=== PATIENT | female | born 2005 | race Two or more races ===

== ENCOUNTER 2025-03-13 10:41 | Outpatient (AMB) | payer MEDICAID, SELFPAY ==
--- NOTE | 2025-03-13 10:41 | AMB.GYNCLNOT ---
Vital Signs 03/13/25 10:54 Height 1.63 m Height Method Stated Weight 80.739 kg Weight Measurement Method Standing Scale BMI 30.5 BP 123/74 Blood Pressure Source Automatic Cuff Blood Pressure Location Right Upper Arm Position Sitting Respiration 16 Pulse 79 Pulse Source Monitor Temp 97.7 F Temp Source Oral Pulse Oximetry (%) 98 Oxygen Delivery Method Room Air Allergies/Home Meds Allergies & Medications Allergies No Known Allergies Allergy (Verified 03/13/25 10:56) Medication Reconciliation vits no.124-ferrous fum 27 mg iron-folic acid 800 mcg tablet ( Vitamin) 1 tab PO DAILY 06/30/24 [History Confirmed 03/13/25] cholecalciferol (vitamin D3) 10 mcg (400 unit) capsule 10 mcg PO QDAY 30 days #30 caps 03/13/25 [Rx] vits no.126-ferrous fum 28 mg iron-folic acid 800 mcg tablet (Classic ) 0.126 - 28 tab PO DAILY 30 days #60 tabs 03/13/25 [Rx] Intake Visit Data Collection New Patient or Established: Established Patient (seen at [facility] within 3 years) Reason for Visit:: AMENORRHEA Seen by Clinical Staff ONLY (RN/MA): No Railroad Car Loader Required: No Do You Feel Safe at Home: Yes Authorities Contacted: N/A PCP or OBGYN visit in last 3 months: No Hx Now: Yes Are you currently on any form of Control: No Last menstrual period: 02/01/25 Pain Present Currently: No Pain Scale Used: Higgins-Madsen/Numerical Pain scale:: 0 Smoking Status Smoking Status: Never smoker Director Of Clinical Applications history Director Of Clinical Applications History Menstrual regularity: regular Flow: normal Monthly: Yes How many days does period last: 6 Age at menarche: 11 Menopausal: No Currently sexually active: Yes Questionnaires Covid-19 Vaccine Questionnaire Has patient been vacinated for Covid-19 Have you been vacinated for Covid-19: No PHQ-9 PHQ-2 Over the last 2 weeks, how often have you been bothered by any of the following problems? 1. Little interest or pleasure in doing things: not at all 2. Feeling down, depressed, or hopeless: not at all Total score: 0 PHQ-9 3. Trouble falling or staying asleep, or sleeping too much: Not at all 4. Feeling tired or having little energy: Not at all 5. Poor appetite or overeating: Not at all 6. Feeling bad about yourself - or that you are a failure or have let yourself or your family down: Not at all 7. Trouble concentrating on things, such as reading the newspaper or watching television: Not at all 8. Moving or speaking so slowly that other people could have noticed? - Or the opposite - being so fidgety or restless that you have been moving around a lot more than usual: not at all 9. Thoughts that you would be better off or of hurting yourself in some way: Not at all Total score: 0 Source: Developed by Drs. Simeon Martinez, Indu Javed, Juanito Eaton and colleagues, with an educational emil from [employer]. 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 at Home: Yes Past Medical History Past Medical History Have you ever been diagnosed with any of the following: Neurological Problems Seizures: No Cardiology Problems Congestive Heart Failure: No Respiratory Problems Chronic Obstructive Pulmonary Disease (COPD): No Stomache/Intestinal Problems Hepatitis: No Genital/Urinary Problems Renal Disease: No Reproductive Problems Endometriosis: No Pelvic Inflammatory Disease: No Previous Pregnancies: Yes Uterine Prolapse: No Endocrine Problems Diabetes Mellitus Type 1: No Diabetes Mellitus Type 2: No Blood Problems Anemia: Yes (with this .) Other Problems Hospitalization: No Down Syndrome: No Developmental Delay: No Shingles: No Falls: No Blood Transfusions: No Blood Transfusion Reaction: No Anesthesia Reactions: No Organ Transplant: No Chemotherapy: No Radiation Therapy: No Hyperbaric Therapy: No MRSA: No VRSA: No Vancomycin-Resistant Enterococci: No Human Immunodeficiency Virus (HIV): No Chicken Pox: No Measles: No Mumps: No Rubella ([place] Measles): No Pertussis: No Clostridium Difficile: No Cancer: No History of Present Illness HPI Narrative 19 yo for amenorrhea/confirm preg test. lmp 02/01/25. EDC 11/10/25. IUP 5w6. sure date, no SAB complaints,no 1st trimester discomfort. unplanned . not using contraception. previous c/s last . c/s for arrest at 3 cm. SROM and no progress. Patient wants to see Dr Elder. denies existing pMH,no social habit. fob involved Review of Systems Review of Systems Systems Reviewed: All systems reviewed, normal except as documented Exam Narrative Physical exam: + test General Limitations: no limitations General Appearance: alert, in no apparent distress, comfortable, cooperative, healthy appearing, well developed and well groomed Head Head exam: atraumatic, normocephalic and normal inspection Resp Respiratory exam: Present normal lung sounds bilaterally Card Cardiovascular exam: Present regular rate, normal rhythm and normal heart sounds Abdominal Abdominal exam: Present soft and normal bowel sounds Psych Psychiatric exam: Present normal affect and normal mood Results Objective Laboratory: + preg test Assessment & Plan Diagnosis / Problem List (1) Amenorrhea: Status: Acute (2) Encounter for test, result positive: Status: Acute Plan verification, start pNV, review s/s of sab. OB panel ordered today. discuss diet and weight, increase protien. increase fluid, comfort measure for nausea. rtc 4 week OBI Additional Plan Follow Up: 4 Weeks (obc) Office Procedures OB Clinic LOC & Office Proc's Nursing/Assessment Patient Status: Established Patient OB Clinic Nursing Assessment: Medication Reconciliation, Update PMH in EMR and Vital Signs OB Clinic Coordination of Care: Complex Care and Chronic Disease 1-5, Consent,records obtained, informed consent, Education Simp Pt/Fam, Lab and Imaging orders, Results/Orders obtained and Staff clarify orders Miscellaneous Interventions: Blood/Urine Collection Established Patient Charge Established Patient Point Assignment: 135 Established Patient Point Charge: EP Level 4 (120-155) In Clinic Bedside tests Bedside HCG: Yes Urine HCG Ambulatory Location Ambulatory Dept Location: OB Clinic Urine HCG HCG: Yes Results Urine HCG Urine HCG Positive Last Edit by Naomi Abernathy MA on 03/13/25 10:59
[2025-03-13 10:54] VITALS: BP 123/74; PULSE 79; RESP 16; TEMP 36.5; O2SAT 98; BMI 30.5
== END 2025-03-13 11:19 | disposition home or self-care (01) ==
PROVIDERS: Supervising Provider Obstetrics & Gynecology; Visit Provider Advanced Practice Midwife
DX: Z32.01 Encounter for pregnancy test, result positive (principal); N91.2 Amenorrhea, unspecified
CPT/HCPCS: 81025; 99214; G0463

== ENCOUNTER 2025-03-21 19:49 | Emergency (ER) | payer MEDICAID, SELFPAY ==
[2025-03-21 19:50] VITALS: BMI 30.5
--- NOTE | 2025-03-21 20:56 | PD.EDVAGBL ---
ED OB Contraction Preg RMI/HPI General Chief complaint: Vaginal Bleeding Stated complaint: VAGINAL BLEEDING, ABD CRAMPING Time Seen by Provider: 03/21/25 20:26 Arrival date/time: 03/21/25 19:49 RME / HPI RME / HPI Narrative: 19-year-old female patient 3 para 3, about 7 weeks , came in for evaluation regarding vaginal spotting. Onset of symptoms early today as vaginal spotting, only happened when she is wiping. Associated with on and off abdominal cramping. Patient denies any other complaints. No medications taken prior to arrival. Was seen by photo tube assembler and was told that she is . No ultrasound was done at the time. Related Data Home Medications ?Medication ?Instructions ?Recorded ?Confirmed vits no.124-ferrous fum 1 tab PO DAILY 06/30/24 03/13/25 27 mg iron-folic acid 800 mcg tablet ( Vitamin) Previous Rx's ?Medication ?Instructions ?Recorded cholecalciferol (vitamin D3) 10 10 mcg PO QDAY 30 days #30 caps 03/13/25 mcg (400 unit) capsule vits no.126-ferrous fum 0.126 - 28 tab PO DAILY 30 days 03/13/25 28 mg iron-folic acid 800 mcg #60 tabs tablet (Classic ) Allergies Allergy/AdvReac Type Severity Reaction Status Date / Time No Known Allergies Allergy Verified 03/21/25 19:52 Review of Systems Review of Systems Narrative Review of Systems: Review of system reviewed and within normal limits except mentioned in HPI ED Exam Narrative Physical exam: VITAL SIGNS: Reviewed. GENERAL APPEARANCE: Alert and interactive, follows commands, no acute distress, HEAD AND FACE: Non-traumatic. ENT: PERRL, pink conjunctivitis, eyelid no trauma, Mucous membrane moist. NECK: Supple, nontender, no nuchal rigidity. CHEST: No tenderness, no crepitus, no paradoxical movement, no retractions. LUNGS: Clear, well ventilated, symmetric, no rales, no wheezing, no ronchi, no stridor, good breath sounds bilaterally. HEART: Regular rate, regular rhythm, no murmur, no gallops. ABDOMEN: Soft, positive bowel sounds, nondistended, no guarding, nontender, no rebound, no masses, RECTAL: Deferred. GENITAL: Deferred. NEUROLOGICAL: Gross motor function intact sensory function intact, Appropriate for age. MUSCULOSKELETAL: low back nontender, full range of motion. EXTREMITIES: Nontender, full range of motion. SKIN: Color pink, dry, no rash, no lacerations, no abrasions, no contusions. LYMPHATICS: Deferred. Course Quality Measures none Orders Category Date Time Status US OB <= 14 weeks fetus Stat Exams 03/21/25 20:59 Completed ABO/RH Type Stat Lab 03/21/25 21:10 Completed Basic Metabolic Panel Stat Lab 03/21/25 21:10 Completed Beta HCG,Quantitative Stat Lab 03/21/25 21:10 Completed CBC Stat Lab 03/21/25 21:10 Completed Urinalysis Stat Lab 03/21/25 21:11 Completed Vital Signs Vital signs: Vital Signs Temperature 98.3 F 03/21/25 21:57 Pulse Rate 81 03/21/25 21:57 Respiratory Rate 18 03/21/25 21:57 Blood Pressure 118/71 03/21/25 21:57 Pulse Oximetry (%) 99 03/21/25 21:57 Oxygen Delivery Method Room Air 03/21/25 21:57 Vaginal Bleeding MDM Narrative MDM Narrative: 19-year-old female patient 3 para 3, about 7 weeks , came in for evaluation regarding vaginal spotting. Onset of symptoms early today as vaginal spotting, only happened when she is wiping. Associated with on and off abdominal cramping. Patient denies any other complaints. No medications taken prior to arrival. Was seen by photo tube assembler and was told that she is . No ultrasound was done at the time. Ultrasound of showed single live intrauterine gestation about 6 weeks and 2 days old with a heartbeat of 119 Laboratory workup including ultrasound came back unremarkable. Results discussed with the patient. Patient data External records reviewed:: None Clinical information provided by:: patient Social determinants that could affect healthcare access:: none Patient has the following chronic illnesses:: None How is presenting disease/condition affected by chronic disease/condition?: no chronic disease Evaluation data The following diagnostics were reviewed and interpreted by me:: lab results and radiology exam(s) Lab and/or radiology exams considered but not ordered:: None Interpretation Summary: See results MDM Medications / Prescriptions Medications or Prescriptions considered but not ordered:: None Medication administrations:: None Consultations Consultation(s) initiated? (list below): No Diagnosis Vaginal Bleeding Differential Diagnosis: threatened , incomplete and vaginal bleeding Most likely diagnosis given after review of the tests above:: Vaginal spotting, Admission Indicated Admission indicated?: not indicated Admission Request Was there a request for admission?: No Disposition Plan Disposition Plan: Discharge Discharge Attestation Discharge Attestation: The patient was given an opportunity to ask questions and understood the discharge instructions. Discharge instructions specifically effects, indications for sooner follow up or return to the emergency department, and the expected course of current diagnosis. Patient condition: Stable Discharge Plan Plan Patient Disposition: HOME (Self Care) Discharge Disposition comment: Stable Prescriptions/Referrals Prescriptions/Med Rec: No Action Classic 28 mg iron- 800 mcg tablet 0.126 - 28 tab PO DAILY 30 Days Qty: 60 2RF cholecalciferol (vitamin D3) 10 mcg (400 unit) capsule 10 mcg PO QDAY 30 Days Qty: 30 0RF Vitamin 27 mg iron- 800 mcg Tablet 1 tab PO DAILY Referrals: Eddi Daniel MD [Primary Care Provider] - In 1 week Problem List Clinical Impression: Vaginal spotting, Patient/Caregiver Discharge Instructions Discharge Activity: activity as tolerated Education Materials: First Trimester Additional Instructions: Thank you for the opportunity for serving you today. You are stable for discharged . You are advised to: Follow-up with your ROUTE RELIEF DRIVER next week Return to ED for worsening of symptoms Increase oral fluids No sex or pelvic rest for 1 week or until cleared by ROUTE RELIEF DRIVER Print Language: Singaporean Stand Alone Forms: Kayla Award Info., Patient Portal Info Letter YG/CELESTINO Supervising Physician YG/CELESTINO Supervising Physician: MD Isai
--- NOTE | 2025-03-21 20:59 | XR_ITS ---
Examination: Complete OB ultrasound, less than 14 weeks, transabdominal Date and time of exam: March 21, 2025, 0 hours INDICATIONS: Onset vaginal bleeding beginning this morning Technique: Obstetrical ultrasound images less than 14 weeks performed via transabdominal imaging Findings: A normal shaped single intrauterine gestation is present in the uterus. pole 0.5 cm corresponds to 6 weeks 2 days gestational age Cardiac motion 119 bpm Ultrasonographic survey of visible and placental structures unremarkable. Amniotic fluid volume appears appropriate for this estimated gestational age. Right ovary 3.4 cm arterial flow Left ovary 3.3 cm arterial flow IMPRESSION: Viable intrauterine gestation 6 weeks 2 days.
[2025-03-21 21:17] LABS: Collection Type, Urine Clean Catch
[2025-03-21 21:22] LABS: Basophils % (Auto) 0 % (0-2.5); Eosinophils # (Auto) 0.2 Thou/mm3 (0.0-0.5); Eosinophils % (Auto) 2 % (0-10); Hematocrit 35.7 % (36.0-46.0); Hemoglobin 12.6 g/dL (12.0-16.0); Immature Granulocytes % (Auto) 0 % (0-0); Immature Granulocytes Auto 0.03 Thou/mm3 (0.00-0.00); Lymphocytes # (Auto) 2.4 Thou/mm3 (1.0-4.8); Lymphocytes % (Auto) 24 % (10-50); Mean Corpuscular HGB Conc 35.3 g/dl (31.0-37.0); Mean Corpuscular Hemoglobin 29.4 pg (25.0-35.0); Mean Corpuscular Volume 83 fL (80-100); Monocytes # (Auto) 0.7 Thou/mm3 (0.0-0.8); Monocytes % (Auto) 6 % (0-12); Neutrophils # (Auto) 6.9 Thou/mm3 (1.8-7.7); Neutrophils % (Auto) 68 % (37-80); Nucleated Red Blood Cell % 0 /100 WBC (0); Platelet Count 279 Thou/mm3 (140-440); RDW Standard Deviation 40.3 fL (36.4-46.3); Red Blood Count 4.29 Miln/mm3 (4.00-5.20); White Blood Count 10.2 Thou/mm3 (4.5-11.0)
[2025-03-21 21:27] LABS: Bilirubin,Urine Negative (Negative); Blood,Urine Trace (Negative); Clarity,Urine Clear (Clear/Hazy); Color,Urine Colorless (Lt Yel-Yel); Glucose, Urine Negative (Negative); Ketones,Urine Negative (Negative); Leukocyte Esterase,Urine Negative (Negative); Nitrite,Urine Negative (Negative); PH,Urine 5.5 (5.0-7.0); Protein,Urine Negative (Neg - Trace); Specific Gravity,Urine 1.008 (1.001-1.035); Urobilinogen,Urine Negative mg/dL (0.0-1.0)
[2025-03-21 21:42] LABS: Mucus,Urine 2+ /lpf; RBC,Urine 3 /hpf (0-3); Squamous Epithelial Cell,Urine 1 /hpf (0-5); WBC,Urine 1 /hpf (0-5)
[2025-03-21 21:46] LABS: Anion Gap 9 (7-16); BUN/Creatinine Ratio 13 Ratio (12-20); Blood Urea Nitrogen 10 mg/dL (9-23); Carbon Dioxide 25.6 mMol/L (20.0-31.0); Chloride 103 mMol/L (98-107); Creatinine (Component) 0.8 mg/dL (0.6-1.3); Estimated Creatinine Clearance 115.3 mL/min (>60); Glucose 90 mg/dL (74-106); Osmolality,Calculated 274 (275-295); Potassium 3.7 mMol/L (3.4-5.1); Sodium 138 mMol/L (136-145); eGFR > 60 See Note
[2025-03-21 21:57] VITALS: BP 118/71; PULSE 81; RESP 18; TEMP 36.8; O2SAT 99
[2025-03-21 22:15] LABS: Beta HCG,Quantitative 62581 mIU/mL (<5.0)
== END 2025-03-21 22:39 | disposition home or self-care (01) ==
PROVIDERS: Nurse Practitioner Family; Emergency Provider Emergency Medicine; PCP Family Medicine
DX: O20.9 Hemorrhage in early pregnancy, unspecified (principal); Z3A.01 Less than 8 weeks gestation of pregnancy
CPT/HCPCS: 36415; 76801; 80048; 81001; 84702; 85025; 86900; 86901; 99284

== ENCOUNTER 2025-04-07 19:41 | Emergency (ER) | payer MEDICAID, SELFPAY ==
[2025-04-07 19:41] VITALS: BMI 30.2
[2025-04-07 20:35] VITALS: BP 108/67; PULSE 70; RESP 18; TEMP 36.8; O2SAT 99
--- NOTE | 2025-04-07 20:44 | EDNOTE_ITS ---
ED OB Contraction Preg RMI/HPI General Chief complaint: Vaginal Bleeding Stated complaint: VAGINAL BLEEDING Time Seen by Provider: 04/07/25 20:21 Arrival date/time: 04/07/25 19:41 RME / HPI RME / HPI Narrative: 19-year-old female presents to the ED with a complaint of vaginal bleeding and cramping that began at approximately 5:20 PM tonight. The bleeding is described as spotting. Cramping is bilateral lower pelvic regions. She denies any fever or chills, dysuria or frequency. Related Data Home Medications ?Medication ?Instructions ?Recorded ?Confirmed vits no.124-ferrous fum 1 tab PO DAILY 03/13/25 27 mg iron-folic acid 800 mcg tablet ( Vitamin) Previous Rx's ?Medication ?Instructions ?Recorded cholecalciferol (vitamin D3) 10 10 mcg PO QDAY 30 days #30 caps 03/13/25 mcg (400 unit) capsule vits no.126-ferrous fum 0.126 - 28 tab PO WENDI LY 30 days 03/13/25 28 mg iron-folic acid 800 mcg #60 tabs tablet (Classic ) Allergies Allergy/AdvReac Type Severity Reaction Status Date / Time No Known Allergies Allergy Verified 04/07/25 19:43 Review of Systems Review of Systems Systems Reviewed: All systems reviewed, normal except as documented Past Medical History Past Medical History NEUROLOGIC: Negative Neurological Disorders or Seizures CARDIAC: Negative Cardiac Disorders or Congestive Heart Failure RESPIRATORY: Negative Chronic Obstructive Pulmonary Disease (COPD) GASTROINTESTINAL: Negative Gastrointestinal Disorders or Hepatitis GENITOURINARY: Negative Genitourinary Disorders or Renal Disease REPRODUCTIVE: Positive Previous Pregnancies; Negative Endometriosis, Pelvic Inflammatory Disease or Uterine Prolapse MUSCULOSKELETAL: Negative Musculoskeletal Disorders ENDOCRINE: Negative Endocrine Disorders, Diabetes Mellitus Type 1 or Diabetes Mellitus Type 2 HEMATOLOGIC: Positive Blood Disorders and Anemia (with this .) OTHER HISTORY: Negative Hospitalization, Autoimmune Disease, Down Syndrome, Developmental Delay, Shingles, Falls, Blood Transfusions, Blood Transfusion Reaction, Anesthesia Reactions, Organ Transplant, Chemotherapy, Radiation Therapy, Hyperbaric Therapy, MRSA, VRSA, Vancomycin-Resistant Enterococci, Human Immunodeficiency Virus (HIV), Chicken Pox, Measles, Mumps, Rubella ([place]isw[place]ili Measles), Pertussis, Clostridium Difficile or Cancer Family History FAMILY HISTORY: Negative Family Psychiatric Problems, Family Respiratory Disorders, Family Cardiac Disorders, Family Gastrointestinal Problems, Family Cancer, Family Surgery or Family Anesthesia Reaction Surgical History SURGICAL: Negative Section or Organ Transplant Social History SMOKING STATUS: Never smoker SECOND HAND EXPOSURE: No ED Exam Narrative Physical exam: 19-year-old female, no acute distress, sitting on exam table. Lungs are clear, regular rate and rhythm without murmurs. Abdomen is soft with mild bilateral lower pelvic tenderness. No rebound or guarding. No CVA or flank tenderness noted. Course Course Course Narrative: 19-year-old female presents to the ED with a complaint of vaginal bleeding and cramping that began at approximately 5:20 PM tonight. The bleeding is described as spotting. Cramping is bilateral lower pelvic regions. She denies any fever or chills, dysuria or frequency. 19-year-old female, no acute distress, sitting on exam table. Lungs are clear, regular rate and rhythm without murmurs. Abdomen is soft with mild bilateral lower pelvic tenderness. No rebound or guarding. No CVA or flank tenderness noted. Orders Category Date Time Status US OB <= 14 weeks fetus Stat Exams 04/07/25 20:47 Completed ABO/RH Type Stat Lab 04/07/25 21:56 Completed Amylase Stat Lab 04/07/25 21:56 Completed Beta HCG,Quantitative Stat Lab 04/07/25 21:56 Completed CBC Stat Lab 04/07/25 21:56 Completed CMP [Comprehensive Metabolic Panel] Stat Lab 04/07/25 21:56 Completed Lipase Stat Lab 04/07/25 21:56 Completed Urinalysis Stat Lab 04/07/25 21:00 Completed Urine Culture Stat Lab 04/07/25 21:00 Received Vital Signs Vital signs: Vital Signs Temperature 98.3 F 04/07/25 20:35 Pulse Rate 70 04/07/25 20:35 Respiratory Rate 18 04/07/25 20:35 Blood Pressure 108/67 04/07/25 20:35 Pulse Oximetry (%) 99 04/07/25 20:35 Oxygen Delivery Method Room Air 04/07/25 20:35 Vaginal Bleeding Patient data External records reviewed:: [facility] previous records Clinical information provided by:: patient Social determinants that could affect healthcare access:: none Patient has the following chronic illnesses:: None How is presenting disease/condition affected by chronic disease/condition?: no chronic disease Evaluation data The following diagnostics were reviewed and interpreted by me:: lab results and radiology exam(s) Lab and/or radiology exams considered but not ordered:: N/A Medications / Prescriptions Medications or Prescriptions considered but not ordered:: N/A Medication administrations:: N/A Consultations Consultation(s) initiated? (list below): No Diagnosis Vaginal Bleeding Differential Diagnosis: missed , threatened , ectopic without intrauterine and vaginal bleeding Most likely diagnosis given after review of the tests above:: Viable with spotting, threatened miscarriage Admission Indicated Admission indicated?: not indicated Explain why admission is indicated or not indicated:: Patient is stable for discharge Admission Request Was there a request for admission?: No Disposition Plan Disposition Plan: Discharge Discharge Attestation Discharge Attestation: The patient and all family members were given an opportunity to ask questions and understood the discharge instructions. Discharge instructions specifically effects, indications for sooner follow up or return to the emergency department, and the expected course of current diagnosis. Patient condition: Stable Discharge Plan Plan Patient Disposition: HOME (Self Care) Discharge Disposition comment: Stable Prescriptions/Referrals Prescriptions/Med Rec: No Action Classic 28 mg iron- 800 mcg tablet 0.126 - 28 tab PO DAILY 30 Days Qty: 60 2RF cholecalciferol (vitamin D3) 10 mcg (400 unit) capsule 10 mcg PO QDAY 30 Days Qty: 30 0RF Vitamin 27 mg iron- 800 mcg Tablet 1 tab PO DAILY Referrals: No Primary/Family,Physician [Primary Care Provider] - In 1 week Problem List Clinical Impression: Threatened Patient/Caregiver Discharge Instructions Education Materials: ED Possible Miscarriage ... Additional Instructions: Follow-up with your EMAIL MANAGER tomorrow. Return to the ED for any new or worsening symptoms. Print Language: Pashto Stand Alone Forms: Kayla Award Info., Patient Portal Info Letter PA/STRUCTURAL MILL SUPERVISOR Supervising Physician PA/STRUCTURAL MILL SUPERVISOR Supervising Physician: Dr. Alex
--- NOTE | 2025-04-07 20:47 | XR_ITS ---
Examination: Complete OB ultrasound, less than 14 weeks, transabdominal Date and time of exam: April 07, 2025 2104 hours INDICATIONS: Pelvic cramping and vaginal bleeding today Technique: Obstetrical ultrasound images less than 14 weeks performed via transabdominal imaging Findings: A normal shaped single intrauterine gestation is present in the uterus. pole 2.6 cm corresponds to 9 weeks 2 days gestational age Cardiac motion 176 BPM Ultrasonographic survey of visible and placental structures unremarkable. Amniotic fluid volume appears appropriate for this estimated gestational age. Right ovary 3.7 cm arterial flow. Left ovary 3.8 cm arterial flow. IMPRESSION: Viable intrauterine gestation 9 weeks 2 days.
[2025-04-07 22:02] LABS: Collection Type, Urine Clean Catch
[2025-04-07 22:15] LABS: Basophils % (Auto) 0 % (0-2.5); Eosinophils # (Auto) 0.1 Thou/mm3 (0.0-0.5); Eosinophils % (Auto) 1 % (0-10); Hematocrit 36.3 % (36.0-46.0); Hemoglobin 12.6 g/dL (12.0-16.0); Immature Granulocytes % (Auto) 0 % (0-0); Immature Granulocytes Auto 0.04 Thou/mm3 (0.00-0.00); Lymphocytes # (Auto) 2.1 Thou/mm3 (1.0-4.8); Lymphocytes % (Auto) 19 % (10-50); Mean Corpuscular HGB Conc 34.7 g/dl (31.0-37.0); Mean Corpuscular Hemoglobin 29.7 pg (25.0-35.0); Mean Corpuscular Volume 86 fL (80-100); Monocytes # (Auto) 0.5 Thou/mm3 (0.0-0.8); Monocytes % (Auto) 5 % (0-12); Neutrophils % (Auto) 75 % (37-80); Nucleated Red Blood Cell % 0 /100 WBC (0); Platelet Count 227 Thou/mm3 (140-440); Red Blood Count 4.24 Miln/mm3 (4.00-5.20); White Blood Count 10.7 Thou/mm3 (4.5-11.0)
[2025-04-07 22:16] LABS: Bacteria,Urine Rare; Bilirubin,Urine Negative (Negative); Blood,Urine Negative (Negative); Calcium Oxalate Crystals,Urine 2+; Clarity,Urine Clear (Clear/Hazy); Color,Urine Yellow (Lt Yel-Yel); Glucose, Urine Negative (Negative); Ketones,Urine Trace (Negative); Leukocyte Esterase,Urine Negative (Negative); Nitrite,Urine Negative (Negative); Protein,Urine Trace (Neg - Trace); RBC,Urine 4 /hpf (0-3); Specific Gravity,Urine 1.032 (1.001-1.035); Squamous Epithelial Cell,Urine 2 /hpf (0-5); WBC,Urine < 1 /hpf (0-5)
[2025-04-07 23:37] LABS: Alanine Aminotransferase 16 U/L (10-49); Albumin, Serum 4.2 gm/dL (3.5-5.0); Albumin/Globulin Ratio 1.8 (1.2-2.2); Alkaline Phosphatase 97 U/L (46-116); Amylase 77 U/L (30-118); Anion Gap 12 (7-16); Aspartate Amino Transferase 11 U/L (0-34); BUN/Creatinine Ratio 11 Ratio (12-20); Bilirubin,Total 0.3 mg/dL (0.3-1.2); Blood Urea Nitrogen 8 mg/dL (9-23); Calcium 9.1 mg/dL (8.3-10.6); Calcium (Corrected) 9.1 mg/dL (8.5-10.1); Carbon Dioxide 25.4 mMol/L (20.0-31.0); Chloride 104 mMol/L (98-107); Creatinine (Component) 0.7 mg/dL (0.6-1.3); Globulin 2.3 gm/dL (2.3-3.5); Glucose 106 mg/dL (74-106); Lipase 57 U/L (12-53); Osmolality,Calculated 279 (275-295); Potassium 3.4 mMol/L (3.4-5.1); Sodium 141 mMol/L (136-145); Total Protein 6.5 gm/dL (5.7-8.2); eGFR > 60 See Note
[2025-04-07 23:52] LABS: Beta HCG,Quantitative 47280400 mIU/mL (<5.0)
[2025-04-07 23:58] VITALS: RESP 16
== END 2025-04-08 | disposition home or self-care (01) ==
PROVIDERS: Physician Assistant; Emergency Provider Emergency Medicine
DX: O20.0 Threatened abortion (principal); Z3A.00 Weeks of gestation of pregnancy not specified
CPT/HCPCS: 36415; 76801; 80053; 81001; 82150; 83690; 84702; 85025; 86900; 86901; 87086; 99284

== ENCOUNTER 2025-04-14 14:32 | Outpatient (AMB) | payer MEDICAID, SELFPAY ==
[2025-04-14 14:53] VITALS: BP 120/75; PULSE 73; RESP 18; TEMP 36.2; O2SAT 98; BMI 30.1
--- NOTE | 2025-04-14 14:53 | OBCLNT_ITS ---
Vital Signs 04/14/25 14:53 Height 1.63 m Height Method Stated Weight 79.946 kg Weight Measurement Method Standing Scale BMI 30.1 BP 120/75 Blood Pressure Source Automatic Cuff Blood Pressure Location Left Upper Arm Position Sitting Respiration 18 Pulse 73 Pulse Source Monitor Temp 97.2 F Temp Source Oral Pulse Oximetry (%) 98 Oxygen Delivery Method Room Air Allergies/Home Meds Allergies & Medications Allergies No Known Allergies Allergy (Verified 04/14/25 14:55) Medication Reconciliation vits no.124-ferrous fum 27 mg iron-folic acid 800 mcg tablet ( Vitamin) 1 tab PO DAILY 06/30/24 [History Confirmed 04/14/25] vits no.126-ferrous fum 28 mg iron-folic acid 800 mcg tablet (Classic ) 0.126 - 28 tab PO DAILY 30 days #60 tabs 03/13/25 [Rx Confirmed 04/14/25] Intake Visit Data Collection New Patient or Established: Established Patient (seen at [facility] within 3 years) Reason for Visit:: OBC Seen by Clinical Staff ONLY (RN/MA): No Off Premise Service Representative Required: No Do You Feel Safe at Home: Yes Authorities Contacted: N/A PCP or OBGYN visit in last 3 months: Yes Date of Last PCP or OBGYN visit: 04/07/25 Hx Now: Yes Are you currently on any form of Control: No Pain Present Currently: No Pain Scale Used: Higgins-Madsen/Numerical Pain scale:: 0 Smoking Status Smoking Status: Never smoker Questionnaires Covid-19 Vaccine Questionnaire Has patient been vacinated for Covid-19 Have you been vacinated for Covid-19: No PHQ-9 PHQ-2 Over the last 2 weeks, how often have you been bothered by any of the following problems? 1. Little interest or pleasure in doing things: not at all 2. Feeling down, depressed, or hopeless: not at all Total score: 0 PHQ-9 3. Trouble falling or staying asleep, or sleeping too much: Not at all 4. Feeling tired or having little energy: Not at all 5. Poor appetite or overeating: Not at all 6. Feeling bad about yourself - or that you are a failure or have let yourself or your family down: Not at all 7. Trouble concentrating on things, such as reading the newspaper or watching television: Not at all 8. Moving or speaking so slowly that other people could have noticed? - Or the opposite - being so fidgety or restless that you have been moving around a lot more than usual: not at all 9. Thoughts that you would be better off or of hurting yourself in some way: Not at all Total score: 0 If you checked off any problems, how difficult have these problems made it for you to do your work, take care of things at home, or get along with other people?: not difficult at all Source: Developed by Drs. Simeon Martinez, Indu Javed, Juanito Eaton and colleagues, with an educational emil from [employer]. 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 no sab complaints,no vag bleeding No complaints. denies vaginal bleeding, no SAB complaints schedule NT scan, NIPT and carrier screen today, continue PNV, fluid rtc 4 week obc LAQUITA Calculator Estimated Delivery Date Method Current WG Current Estimate 11/08/25 Ultrasound #1 10w 2d Other Estimates 11/08/25 LMP (Certain) 10w 2d Notes Visit Date: 04/14/25 Last Updated by: Razia Caicedo CNM 19 yo . close spacing. lmp 02/01/25, EDC 11/10/25. sono: 9w2. EDC 11/10/25 Office Procedures OB Clinic LOC & Office Proc's Nursing/Assessment Patient Status: Established Patient OB Clinic Nursing Assessment: Medication Reconciliation, Update PMH in EMR and Vital Signs OB Clinic Coordination of Care: Education Complex Pt/Fam, Consent,records obtained, informed consent, Lab and Imaging orders, Results/Orders obtained and Staff clarify orders Special Needs: Heart tones Established Patient Charge Established Patient Point Assignment: 115 Established Patient Point Charge: EP Level 3 (80-115) Assessment & Plan Diagnosis / Problem List (1) Encounter for supervision of high risk in first trimester, antepartum: Status: Acute Plan Continue vitamins. Discussed SAB precautions. NIPT and carrier screen today. Schedule maternal- medicine in to me scan. Return in 4 weeks OB check. OB panel [place] Additional Plan Follow Up: 4 Weeks (obc)
== END 2025-04-14 15:15 | disposition home or self-care (01) ==
LOC: HODSOBC 14:32
PROVIDERS: PCP Advanced Practice Midwife; Referring Provider Advanced Practice Midwife; Supervising Provider Advanced Practice Midwife; Visit Provider Advanced Practice Midwife
DX: O09.91 Supervision of high risk pregnancy, unspecified, first trimester (principal); Z3A.10 10 weeks gestation of pregnancy
CPT/HCPCS: 99213; G0463

== ENCOUNTER 2025-05-13 11:24 | Outpatient (AMB) | payer MEDICAID, SELFPAY ==
[2025-05-13 11:33] VITALS: BP 111/71; PULSE 74; RESP 17; TEMP 36.6; O2SAT 98; BMI 29.1
--- NOTE | 2025-05-13 11:33 | OBCLNT_ITS ---
Vital Signs 05/13/25 11:33 Height 1.63 m Height Method Measured Weight 77.337 kg Weight Measurement Method Standing Scale BMI 29.1 BP 111/71 Blood Pressure Source Automatic Cuff Blood Pressure Location Right Upper Arm Position Sitting Respiration 17 Pulse 74 Pulse Source Monitor Temp 97.9 F Temp Source Temporal Artery Scan Pulse Oximetry (%) 98 Oxygen Delivery Method Room Air Allergies/Home Meds Allergies & Medications Allergies No Known Allergies Allergy (Verified 05/13/25 11:33) Medication Reconciliation vits no.124-ferrous fum 27 mg iron-folic acid 800 mcg tablet ( Vitamin) 1 tab PO DAILY 06/30/24 [History Confirmed 05/13/25] vits no.126-ferrous fum 28 mg iron-folic acid 800 mcg tablet (Classic ) 0.126 - 28 tab PO DAILY 30 days #60 tabs 03/13/25 [Rx Confirmed 05/13/25] Intake Visit Data Collection New Patient or Established: Established Patient (seen at [facility] within 3 years) Reason for Visit:: OBC Consent obtained for Telemed Visit: No Seen by Clinical Staff ONLY (RN/MA): No 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 1. Little interest or pleasure in doing things: not at all PHQ-9 8. Moving or speaking so slowly that other people could have noticed? - Or the opposite - being so fidgety or restless that you have been moving around a lot more than usual: not at all Source: Developed by Drs. Simeon Martinez, Indu Javed, Juanito Eaton and colleagues, with an educational emil from [employer]. 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 no sab complaints,no vag bleeding No complaints. denies vaginal bleeding, no SAB complaints schedule NT scan, NIPT and carrier screen today, continue PNV, fluid rtc 4 week obc 05/13/25 -?-?-?-?-?-?-?-?-?-?-?-?- 14w 3d 77.337 kg 111/71 absent unknown 14 145 active forgot to do labs. no sab complaints, light FM, no leaking,bleeding or discomfort lab slip for OB panel and NIPT given. f/u mfm scan in 6 week, discuss sab precaution. rtc 4 week LAQUITA Calculator Estimated Delivery Date Method Current WG Current Estimate 11/08/25 Ultrasound #1 14w 3d Other Estimates 11/08/25 LMP (Certain) 14w 3d Notes Visit Date: 04/14/25 Last Updated by: Razia Caicedo CNM 19 yo . close spacing. lmp 02/01/25, EDC 11/10/25. sono: 9w2. EDC 11/10/25 Office Procedures OB Clinic LOC & Office Proc's Nursing/Assessment Patient Status: Established Patient OB Clinic Nursing Assessment: Medication Reconciliation, Update PMH in EMR and Vital Signs OB Clinic Coordination of Care: Complex Care and Chronic Disease 1-5, Consent,records obtained, informed consent, 4+ Authorizations needed and Staff clarify orders Special Needs: Heart tones Miscellaneous Interventions: Blood/Urine Collection Established Patient Charge Established Patient Point Assignment: 155 Established Patient Point Charge: EP Level 4 (120-155) Assessment & Plan Diagnosis / Problem List (1) Encounter for supervision of normal in multigravida in second trimester: Status: Acute Plan discuss sab precaution, re-order oB panel, nipt and carrier screen, hydrate. mfm f/u in 6 week Additional Plan Follow Up: 4 Weeks (obc)
== END 2025-05-13 11:47 | disposition home or self-care (01) ==
LOC: HODSOBC 11:24
PROVIDERS: PCP Advanced Practice Midwife; Referring Provider Advanced Practice Midwife; Supervising Provider Advanced Practice Midwife; Visit Provider Advanced Practice Midwife
DX: Z34.82 Encounter for supervision of other normal pregnancy, second trimester (principal); Z3A.14 14 weeks gestation of pregnancy
CPT/HCPCS: 99214; G0463

== ENCOUNTER 2025-06-10 10:34 | Outpatient (AMB) | payer MEDICAID, SELFPAY ==
[2025-06-10 11:05] VITALS: BP 101/67; PULSE 86; RESP 17; TEMP 36.6; O2SAT 97; BMI 29.5
--- NOTE | 2025-06-10 11:05 | AMB.OBVISIT ---
Vital Signs 06/10/25 11:05 Height 1.63 m Height Method Stated Weight 78.528 kg Weight Measurement Method Standing Scale BMI 29.5 BP 101/67 Blood Pressure Source Automatic Cuff Blood Pressure Location Right Upper Arm Position Sitting Respiration 17 Pulse 86 Pulse Source Monitor Temp 97.8 F Temp Source Temporal Artery Scan Pulse Oximetry (%) 97 Oxygen Delivery Method Room Air Allergies/Home Meds Allergies & Medications Allergies No Known Allergies Allergy (Verified 06/10/25 11:06) Medication Reconciliation vits no.124-ferrous fum 27 mg iron-folic acid 800 mcg tablet ( Vitamin) 1 tab PO DAILY 06/30/24 [History Confirmed 06/10/25] vits no.126-ferrous fum 28 mg iron-folic acid 800 mcg tablet (Classic ) 0.126 - 28 tab PO DAILY 30 days #60 tabs 03/13/25 [Rx Confirmed 06/10/25] Intake Visit Data Collection New Patient or Established: Established Patient (seen at [facility] within 3 years) Reason for Visit:: OBC 18W Seen by Clinical Staff ONLY (RN/MA): No 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 1. Little interest or pleasure in doing things: not at all 2. Feeling down, depressed, or hopeless: not at all Total score: 0 PHQ-9 3. Trouble falling or staying asleep, or sleeping too much: Not at all 4. Feeling tired or having little energy: Not at all 5. Poor appetite or overeating: Not at all 6. Feeling bad about yourself - or that you are a failure or have let yourself or your family down: Not at all 7. Trouble concentrating on things, such as reading the newspaper or watching television: Not at all 8. Moving or speaking so slowly that other people could have noticed? - Or the opposite - being so fidgety or restless that you have been moving around a lot more than usual: not at all 9. Thoughts that you would be better off or of hurting yourself in some way: Not at all Total score: 0 If you checked off any problems, how difficult have these problems made it for you to do your work, take care of things at home, or get along with other people?: not difficult at all Source: Developed by Drs. Simeon Martinez, Indu Javed, Juanito Eaton and colleagues, with an educational emil from [employer]. 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 no sab complaints,no vag bleeding No complaints. denies vaginal bleeding, no SAB complaints schedule NT scan, NIPT and carrier screen today, continue PNV, fluid rtc 4 week obc 05/13/25 <del>?</del> 14w 3d 77.337 kg 111/71 absent unknown 14 145 active forgot to do labs. no sab complaints, light FM, no leaking,bleeding or discomfort lab slip for OB panel and NIPT given. f/u mfm scan in 6 week, discuss sab precaution. rtc 4 week 06/10/25 <del>?</del> 18w 3d 78.528 kg 101/67 absent unknown 18 145 active NS to lab. Difficult to get labs done with 2 babies. denies PTL complaints, no leaking or bleeding. MFM appt 06/27. prev c/s x1, spouse will get vasectoy I gave patient another lab slip for OB panel, AFP, NIPT. Keep OB appointment for anatomy scan June 27. Increase fluids. Continue prenatals. Return in 4 weeks with OB. I talked with patient about tubal ligation with a repeat versus vasectomy for partner. Discussed PTL precautions and increase fluids. Return in 4 weeks LAQUITA Calculator Estimated Delivery Date Method Current WG Current Estimate 11/08/25 LMP (Certain) 18w 3d Other Estimates 11/08/25 Ultrasound #1 18w 3d Notes Visit Date: 04/14/25 Last Updated by: Razia Caicedo CNM 19 yo . close spacing. lmp 02/01/25, EDC 11/10/25. /12/11 sono: 9w2. EDC 11/10/25 Office Procedures OB Clinic LOC & Office Proc's Nursing/Assessment Patient Status: Established Patient OB Clinic Nursing Assessment: Medication Reconciliation, Update PMH in EMR and Vital Signs OB Clinic Coordination of Care: Complex Care and Chronic Disease 1-5, Consent,records obtained, informed consent, Education Simp Pt/Fam and Staff clarify orders Special Needs: Heart tones Established Patient Charge Established Patient Point Assignment: 115 Established Patient Point Charge: EP Level 3 (80-115) Assessment & Plan Diagnosis / Problem List (1) Encounter for supervision of normal in multigravida in second trimester: Status: Acute Plan Patient was given another lab slip to get her OB panel, AFP and NIPT. Keep maternal- medicine appointment for her anatomy scan June 27. Continue prenatals. Increase fluids. And I discussed her getting a tubal ligation with a repeat versus her 's vasectomy. Return in 4 weeks OB check with Additional Plan Follow Up: 4 Weeks (obc)
== END 2025-06-10 11:29 | disposition home or self-care (01) ==
LOC: HODSOBC 10:34
PROVIDERS: PCP Advanced Practice Midwife; Referring Provider Advanced Practice Midwife; Supervising Provider Advanced Practice Midwife; Visit Provider Advanced Practice Midwife
DX: O09.292 Supervision of pregnancy with other poor reproductive or obstetric history, second trimester (principal); O34.219 Maternal care for unspecified type scar from previous cesarean delivery; Z3A.18 18 weeks gestation of pregnancy
CPT/HCPCS: 99213; G0463

== ENCOUNTER 2025-06-26 08:40 | Outpatient (AMB) | payer MEDICAID, SELFPAY ==
[2025-06-26 08:47] VITALS: BP 110/69; PULSE 77; RESP 16; TEMP 36.6; O2SAT 98; BMI 29.7
--- NOTE | 2025-06-26 08:47 | OBCLNT_ITS ---
Vital Signs 06/26/25 08:47 Height 1.63 m Height Method Stated Weight 79.152 kg Weight Measurement Method Standing Scale BMI 29.7 BP 110/69 Blood Pressure Source Automatic Cuff Blood Pressure Location Left Upper Arm Position Sitting Respiration 16 Pulse 77 Pulse Source Monitor Temp 97.8 F Temp Source Oral Pulse Oximetry (%) 98 Oxygen Delivery Method Room Air Allergies/Home Meds Allergies & Medications Allergies No Known Allergies Allergy (Verified 06/26/25 08:49) Medication Reconciliation vits no.124-ferrous fum 27 mg iron-folic acid 800 mcg tablet ( Vitamin) 1 tab PO DAILY 06/30/24 [History Confirmed 06/26/25] vits no.126-ferrous fum 28 mg iron-folic acid 800 mcg tablet (Classic ) 0.126 - 28 tab PO DAILY 30 days #60 tabs 03/13/25 [Rx Confirmed 06/26/25] nitrofurantoin monohydrate/macrocrystals 100 mg capsule (Macrobid) 100 mg PO BID 7 days #14 caps 06/23/25 [Rx Confirmed 06/26/25] clotrimazole 2 % vaginal cream (Gyne-Lotrimin) 1 appful vaginal QHS 3 days #21 grams 06/26/25 [Rx] nitrofurantoin monohydrate/macrocrystals 100 mg capsule (Macrobid) 100 mg PO BID 7 days #14 caps 06/26/25 [Rx] vits no.130-ferrous fum 27 mg iron-folic acid 800 mcg tablet ( Vitamin) 1 tab PO QDAY pregancy #60 tabs 06/26/25 [Rx] Intake Visit Data Collection New Patient or Established: Established Patient (seen at [facility] within 3 years) Reason for Visit:: CARE/ URINE RESULTS Seen by Clinical Staff ONLY (RN/MA): No High School Admissions Representative Required: No Do You Feel Safe at Home: Yes Authorities Contacted: N/A PCP or OBGYN visit in last 3 months: Yes Hx Now: Yes Are you currently on any form of Control: No Pain Present Currently: No Pain Scale Used: Higgins-Madsen/Numerical Pain scale:: 0 Smoking Status Smoking Status: Never smoker Questionnaires Covid-19 Vaccine Questionnaire Has patient been vacinated for Covid-19 Have you been vacinated for Covid-19: Yes PHQ-9 PHQ-2 Over the last 2 weeks, how often have you been bothered by any of the following problems? 1. Little interest or pleasure in doing things: not at all 2. Feeling down, depressed, or hopeless: not at all Total score: 0 PHQ-9 3. Trouble falling or staying asleep, or sleeping too much: Not at all 4. Feeling tired or having little energy: Not at all 5. Poor appetite or overeating: Not at all 6. Feeling bad about yourself - or that you are a failure or have let yourself or your family down: Not at all 7. Trouble concentrating on things, such as reading the newspaper or watching television: Not at all 8. Moving or speaking so slowly that other people could have noticed? - Or the opposite - being so fidgety or restless that you have been moving around a lot more than usual: not at all 9. Thoughts that you would be better off or of hurting yourself in some way: Not at all Total score: 0 Source: Developed by Drs. Simeon Martinez, Indu Javed, Juanito Eaton and colleagues, with an educational emil from [employer]. 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 no sab complaints,no vag bleeding No complaints. denies vaginal bleeding, no SAB complaints schedule NT scan, NIPT and carrier screen today, continue PNV, fluid rtc 4 week obc 05/13/25 -?-?-?-?-?-?-?-?-?-?-?-?- 14w 3d 77.337 kg 111/71 absent unknown 14 145 active forgot to do labs. no sab complaints, light FM, no leaking,bleeding or discomfort lab slip for OB panel and NIPT given. f/u mfm scan in 6 week, discuss sab precaution. rtc 4 week 06/10/25 -?-?-?-?-?-?-?-?-?-?-?-?- 18w 3d 78.528 kg 101/67 absent unknown 18 145 active NS to lab. Difficult to get labs done with 2 babies. denies PTL complaints, no leaking or bleeding. MFM appt 06/27. prev c/s x1, spouse will get vasectoy I gave patient another lab slip for OB panel, AFP, NIPT. Keep OB appointment for anatomy scan June 27. Increase fluids. Continue prenatals. Return in 4 weeks with OB. I talked with patient about tubal ligation with a repeat versus vasectomy for partner. Discussed PTL precautions and increase fluids. Return in 4 weeks 06/26/25 -?-?-?-?-?-?-?-?-?-?-?-?- 20w 5d 79.152 kg 110/69 absent unknown 20 145 active Complains of white clumpy discharge and discomfort with voiding. Patient did not pick up and delivery driver her Macrobid as directed. Reports movement. Denies bleeding, cramps, leaking. Patient has an appointment with Dr. Mayorga because a repeat . Maternal- medicine ultrasound is pending Patient will be scheduled for maternal- medicine sono. Reminded to get labs. NuSwab plus today. Prescription for Gyne-Lotrimin 2% x 3 days with a refill. I also gave refill on prenatals and instructed patient to take her Macrobid 100 twice daily x 7. Increase fluids. labor precautions. Follow-up with OB LAQUITA Calculator Estimated Delivery Date Method Current WG Current Estimate 11/08/25 LMP (Certain) 20w 5d Other Estimates 11/08/25 Ultrasound #1 20w 5d Notes Visit Date: 06/26/25 Last Updated by: Razia Caicedo CNM B+,abs-,rpr;;nr, rub imm, hbsag-,hiv-,GC/CT-, HC-, NIPT/carrier screen- REPEAT c/s Visit Date: 04/14/25 Last Updated by: Razia Caicedo CNM 19 yo . close spacing. lmp 02/01/25, EDC 11/10/25. sono: 9w2. EDC 11/10/25 Office Procedures OB Clinic LOC & Office Proc's Nursing/Assessment Patient Status: Established Patient OB Clinic Nursing Assessment: Medication Reconciliation, Update PMH in EMR and Vital Signs OB Clinic Coordination of Care: Complex Care and Chronic Disease 1-5, Consent,records obtained, informed consent, Education Simp Pt/Fam, Lab and Imaging orders, Results/Orders obtained and Staff clarify orders Special Needs: Heart tones Established Patient Charge Established Patient Point Assignment: 135 Established Patient Point Charge: EP Level 4 (120-155) Assessment & Plan Diagnosis / Problem List (1) Encounter for supervision of normal in multigravida in second trimester: Status: Acute (2) Vaginitis: Status: Acute Plan New swab plus. Prescriptions for Gyne-Lotrimin to use nightly x 6 days. Refill vitamins. And I gave another prescription for Macrobid 100 twice daily x 7 because patient did not pick the first 1 up. Increase fluids. Comfort measures for vaginitis. Discussed labor precautions. And patient will follow-up with OB because of repeat in 4 weeks. Additional Plan Follow Up: 4 Weeks (obc)
== END 2025-06-26 09:15 | disposition home or self-care (01) ==
PROVIDERS: Supervising Provider Advanced Practice Midwife; Visit Provider Advanced Practice Midwife
DX: O09.892 Supervision of other high risk pregnancies, second trimester (principal); O23.592 Infection of other part of genital tract in pregnancy, second trimester; N76.0 Acute vaginitis; O09.292 Supervision of pregnancy with other poor reproductive or obstetric history, second trimester; O34.219 Maternal care for unspecified type scar from previous cesarean delivery; Z3A.20 20 weeks gestation of pregnancy
CPT/HCPCS: 99214; G0463

== ENCOUNTER 2025-07-08 13:09 | Outpatient (AMB) | payer MEDICAID, SELFPAY ==
[2025-07-08 13:20] VITALS: BP 109/70; PULSE 85; RESP 16; TEMP 36.2; O2SAT 98; BMI 30.1
--- NOTE | 2025-07-08 13:20 | OBCLNT_ITS ---
Vital Signs 07/08/25 13:20 Height 1.63 m Height Method Stated Weight 80.031 kg Weight Measurement Method Standing Scale BMI 30.1 BP 109/70 Blood Pressure Source Automatic Cuff Blood Pressure Location Left Upper Arm Position Sitting Respiration 16 Pulse 85 Pulse Source Monitor Temp 97.2 F Temp Source Oral Pulse Oximetry (%) 98 Oxygen Delivery Method Room Air Allergies/Home Meds Allergies & Medications Allergies No Known Allergies Allergy (Verified 07/08/25 13:21) Medication Reconciliation vits no.124-ferrous fum 27 mg iron-folic acid 800 mcg tablet ( Vitamin) 1 tab PO DAILY 06/30/24 [History Confirmed 07/08/25] vits no.126-ferrous fum 28 mg iron-folic acid 800 mcg tablet (Classic ) 0.126 - 28 tab PO DAILY 30 days #60 tabs 03/13/25 [Rx Confirmed 07/08/25] clotrimazole 2 % vaginal cream (Gyne-Lotrimin) 1 appful vaginal QHS 3 days #21 grams 06/26/25 [Rx Confirmed 07/08/25] vits no.130-ferrous fum 27 mg iron-folic acid 800 mcg tablet ( Vitamin) 1 tab PO QDAY pregancy #60 tabs 06/26/25 [Rx Confirmed 07/08/25] Intake Visit Data Collection New Patient or Established: Established Patient (seen at [facility] within 3 years) Reason for Visit:: C Seen by Clinical Staff ONLY (RN/MA): No Flap Presser Required: No Do You Feel Safe at Home: Yes Authorities Contacted: N/A PCP or OBGYN visit in last 3 months: Yes Date of Last PCP or OBGYN visit: 06/26/25 Hx Now: Yes Are you currently on any form of Control: No Pain Present Currently: No Pain Scale Used: Higgins-Madsen/Numerical Pain scale:: 0 Smoking Status Smoking Status: Never smoker Questionnaires Covid-19 Vaccine Questionnaire Has patient been vacinated for Covid-19 Have you been vacinated for Covid-19: Yes PHQ-9 PHQ-2 Over the last 2 weeks, how often have you been bothered by any of the following problems? 1. Little interest or pleasure in doing things: not at all 2. Feeling down, depressed, or hopeless: not at all Total score: 0 PHQ-9 3. Trouble falling or staying asleep, or sleeping too much: Not at all 4. Feeling tired or having little energy: Not at all 5. Poor appetite or overeating: Not at all 6. Feeling bad about yourself - or that you are a failure or have let yourself or your family down: Not at all 7. Trouble concentrating on things, such as reading the newspaper or watching television: Not at all 8. Moving or speaking so slowly that other people could have noticed? - Or the opposite - being so fidgety or restless that you have been moving around a lot more than usual: not at all 9. Thoughts that you would be better off or of hurting yourself in some way: Not at all Total score: 0 If you checked off any problems, how difficult have these problems made it for you to do your work, take care of things at home, or get along with other people?: not difficult at all Source: Developed by Drs. Simeon Martinez, Indu Javed, Juanito Eaton and colleagues, with an educational emil from [employer]. 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 no sab complaints,no vag bleeding No complaints. denies vaginal bleeding, no SAB complaints schedule NT scan, NIPT and carrier screen today, continue PNV, fluid rtc 4 week obc 05/13/25 -?-?-?-?-?-?-?-?-?-?-?-?- 14w 3d 77.337 kg 111/71 absent unknown 14 145 active forgot to do labs. no sab complaints, light FM, no leaking,bleeding or discomfort lab slip for OB panel and NIPT given. f/u mfm scan in 6 week, discuss sab precaution. rtc 4 week 06/10/25 -?-?-?-?-?-?-?-?-?-?-?-?- 18w 3d 78.528 kg 101/67 absent unknown 18 145 active NS to lab. Difficult to get labs done with 2 babies. denies PTL complaints, no leaking or bleeding. MFM appt 06/27. prev c/s x1, spouse will get vasectoy I gave patient another lab slip for OB panel, AFP, NIPT. Keep OB appointment for anatomy scan June 27. Increase fluids. Continue prenatals. Return in 4 weeks with OB. I talked with patient about tubal ligation with a repeat versus vasectomy for partner. Discussed PTL precautions and increase fluids. Return in 4 weeks 06/26/25 -?-?-?-?-?-?-?-?-?-?-?-?- 20w 5d 79.152 kg 110/69 absent unknown 20 145 active Complains of white clumpy discharge and discomfort with voiding. 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 Reports movement. Denies bleeding, cramps, leaking. Patient has an appointment with Dr. Mayorga because a repeat . Maternal- medicine ultrasound is pending Patient will be scheduled for maternal- medicine sono. Reminded to get labs. NuSwab plus today. Prescription for Gyne-Lotrimin 2% x 3 days with a refill. I also gave refill on prenatals and instructed patient to take her Macrobid 100 twice daily x 7. Increase fluids. labor precautions. Follow-up with OB 07/08/25 -?-?-?-?-?-?-?-?-?-?-?-?- 22w 3d 80.031 kg 109/70 absent unknown 22 155 active at 22 weeks 3 days gestation, presenting for first visit. History of previous C- section in 2023 due to failure to dilate. Recent [facility] ultrasound shows normal anatomy survey, cervical length 4.37 cm, cephalic presentation, and posterior placenta without previa. Initial labs within normal limits, including negative infectious disease screenings. Urinalysis positive for coagulase- negative staph >100,000 cfu. Maternity genome testing negative. Due to previous , patient requires transfer of care for potential vaginal after () attempt, as current facility does not allow this option. Plan - Transfer care to Dr. Eulalio Barboza at [facility] at 32 weeks gestation - Next appointment scheduled in 4 weeks - Continue vitamins - Glucose test to be performed at 26 wee ks gestation LAQUITA Calculator Estimated Delivery Date Method Current WG Current Estimate 11/08/25 LMP (Certain) 22w 4d Other Estimates 11/08/25 Ultrasound #1 22w 4d Notes Visit Date: 07/08/25 Last Updated by: Murali Peña MD - [facility] ultrasound (June 27, 2025): - Cervical length: 4.37 cm - Normal ovaries - presentation: Cephalic - Placenta: Posterior, no previa - Anatomy survey: Normal - Initial labs: - Hepatitis B: Negative - Hepatitis C: Negative - RPR: Nonreactive - Rubella: Immune - Blood group: B-positive - Antibody screen: Negative - HIV: Negative - Gonorrhea: Negative - Chlamydia: Negative - Hemoglobin: 13.6 g/dL - Platelets: 247 x10^3/?L Visit Date: 06/26/25 Last Updated by: Razia Caicedo CNM B+,abs-,rpr;;nr, rub imm, hbsag-,hiv-,GC/CT-, HC-, NIPT/carrier screen- REPEAT c/s Visit Date: 04/14/25 Last Updated by: Razia Caicedo CNM 19 yo . close spacing. lmp 02/01/25, EDC 11/10/25. /12/11 sono: 9w2. EDC 11/10/25 Office Procedures OB Clinic LOC & Office Proc's Nursing/Assessment Patient Status: Established Patient OB Clinic Nursing Assessment: Medication Reconciliation, Update PMH in EMR and Vital Signs OB Clinic Coordination of Care: Education Complex Pt/Fam, Consent,records obtained, informed consent, Lab and Imaging orders and Staff clarify orders Special Needs: Heart tones Established Patient Charge Established Patient Point Assignment: 110 Established Patient Point Charge: EP Level 3 (80-115) Assessment & Plan Diagnosis / Problem List (1) Maternal care for low transverse scar from previous delivery: Status: Acute Plan Problem List - , second trimester - Previous delivery - Urinary tract infection - Vaginitis - Asymptomatic bacteriuria Assessment at 22 weeks 3 days gestation, presenting for first visit. History of previous in 2023 due to failure to dilate. Recent [facility] ultrasound shows normal anatomy survey, cervical length 4.37 cm, cephalic presentation, and posterior placenta without previa. Initial labs within normal limits, including negative infectious disease screenings. Urinalysis positive for coagulase-negative staph >100,000 cfu. Maternity genome testing negative. Due to previous , patient requires transfer of care for potential vaginal after () attempt, as current facility does not allow this option. Plan - Transfer care to Dr. Eulalio Barboza at [facility] at 32 weeks gestation - Next appointment scheduled in 4 weeks - Continue vitamins - Glucose test to be performed at 26 weeks gestation
== END 2025-07-08 13:35 | disposition home or self-care (01) ==
LOC: HODSOBC 13:09
PROVIDERS: Supervising Provider Obstetrics & Gynecology; Visit Provider Obstetrics & Gynecology
DX: O09.292 Supervision of pregnancy with other poor reproductive or obstetric history, second trimester (principal); O34.211 Maternal care for low transverse scar from previous cesarean delivery; O09.892 Supervision of other high risk pregnancies, second trimester; O23.42 Unspecified infection of urinary tract in pregnancy, second trimester; N39.0 Urinary tract infection, site not specified; O23.592 Infection of other part of genital tract in pregnancy, second trimester; B95.8 Unspecified staphylococcus as the cause of diseases classified elsewhere; Z3A.22 22 weeks gestation of pregnancy
CPT/HCPCS: 99213; G0463

== ENCOUNTER 2025-07-10 14:28 | Outpatient (AMB) | payer MEDICAID, SELFPAY ==
[2025-07-10 14:46] VITALS: BP 119/73; PULSE 82; RESP 16; TEMP 36.2; O2SAT 98; BMI 30.1
--- NOTE | 2025-07-10 14:46 | OBCLNT_ITS ---
Vital Signs 07/10/25 14:46 Height 1.63 m Height Method Stated Weight 79.946 kg Weight Measurement Method Standing Scale BMI 30.1 BP 119/73 Blood Pressure Source Automatic Cuff Blood Pressure Location Left Upper Arm Position Sitting Respiration 16 Pulse 82 Pulse Source Monitor Temp 97.2 F Temp Source Oral Pulse Oximetry (%) 98 Oxygen Delivery Method Room Air Allergies/Home Meds Allergies & Medications Allergies No Known Allergies Allergy (Verified 07/10/25 14:47) Medication Reconciliation vits no.124-ferrous fum 27 mg iron-folic acid 800 mcg tablet ( Vitamin) 1 tab PO DAILY 06/30/24 [History Confirmed 07/10/25] vits no.126-ferrous fum 28 mg iron-folic acid 800 mcg tablet (Classic ) 0.126 - 28 tab PO DAILY 30 days #60 tabs 03/13/25 [Rx Confirmed 07/10/25] clotrimazole 2 % vaginal cream (Gyne-Lotrimin) 1 appful vaginal QHS 3 days #21 grams 06/26/25 [Rx Confirmed 07/10/25] vits no.130-ferrous fum 27 mg iron-folic acid 800 mcg tablet ( Vitamin) 1 tab PO QDAY pregancy #60 tabs 06/26/25 [Rx Confirmed 07/10/25] fluconazole 150 mg tablet 150 mg PO QDAY 3 days #3 tabs 07/10/25 [Rx] Intake Visit Data Collection New Patient or Established: Established Patient (seen at [facility] within 3 years) Reason for Visit:: C Seen by Clinical Staff ONLY (RN/MA): No 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 1. Little interest or pleasure in doing things: not at all 2. Feeling down, depressed, or hopeless: not at all Total score: 0 PHQ-9 3. Trouble falling or staying asleep, or sleeping too much: Not at all 4. Feeling tired or having little energy: Not at all 5. Poor appetite or overeating: Not at all 6. Feeling bad about yourself - or that you are a failure or have let yourself or your family down: Not at all 7. Trouble concentrating on things, such as reading the newspaper or watching television: Not at all 8. Moving or speaking so slowly that other people could have noticed? - Or the opposite - being so fidgety or restless that you have been moving around a lot more than usual: not at all 9. Thoughts that you would be better off or of hurting yourself in some way: Not at all Total score: 0 If you checked off any problems, how difficult have these problems made it for you to do your work, take care of things at home, or get along with other people?: not difficult at all Source: Developed by Drs. Simeon Martinez, Indu Javed, Juanito Eaton and colleagues, with an educational emil from [employer]. 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 no sab complaints,no vag bleeding No complaints. denies vaginal bleeding, no SAB complaints schedule NT scan, NIPT and carrier screen today, continue PNV, fluid rtc 4 week obc 05/13/25 -?-?-?-?-?-?-?-?-?-?-?-?- 14w 3d 77.337 kg 111/71 absent unknown 14 145 active forgot to do labs. no sab complaints, light FM, no leaking,bleeding or discomfort lab slip for OB panel and NIPT given. f/u mfm scan in 6 week, discuss sab precaution. rtc 4 week 06/10/25 -?-?-?-?-?-?-?-?-?-?-?-?- 18w 3d 78.528 kg 101/67 absent unknown 18 145 active NS to lab. Difficult to get labs done with 2 babies. denies PTL complaints, no leaking or bleeding. MFM appt 06/27. prev c/s x1, spouse will get vasectoy I gave patient another lab slip for OB panel, AFP, NIPT. Keep OB appointment for anatomy scan June 27. Increase fluids. Continue prenatals. Return in 4 weeks with OB. I talked with patient about tubal ligation with a repeat versus vasectomy for partner. Discussed PTL precautions and increase fluids. Return in 4 weeks 06/26/25 -?-?-?-?-?-?-?-?-?--?-?-?- 20w 5d 79.152 kg 110/69 absent unknown 20 145 active Complains of white clumpy discharge and discomfort with voiding. 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 Reports movement. Denies bleeding, cramps, leaking. Patient has an appointment with Dr. Mayorga because a repeat . Maternal- medicine ultrasound is pending Patient will be scheduled for maternal- medicine sono. Reminded to get labs. NuSwab plus today. Prescription for Gyne-Lotrimin 2% x 3 days with a refill. I also gave refill on prenatals and instructed patient to take her Macrobid 100 twice daily x 7. Increase fluids. labor precautions. Follow-up with OB 07/08/25 -?-?-?-?-?-?-?-?-?-?-?-?- 22w 3d 80.031 kg 109/70 absent unknown 22 155 active at 22 weeks 3 days gestation, presenting for first visit. History of previous C- section in 2023 due to failure to dilate. Recent [facility] ultrasound shows normal anatomy survey, cervical length 4.37 cm, cephalic presentation, and posterior placenta without previa. Initial labs within normal limits, including negative infectious disease screenings. Urinalysis positive for coagulase- negative staph >100,000 cfu. Maternity genome testing negative. Due to previous , patient requires transfer of care for potential vaginal after () attempt, as current facility does not allow this option. Plan - Transfer care to Dr. Eulalio Barboza at [facility] at 32 weeks gestation - Next appointment scheduled in 4 weeks - Continue vitamins - Glucose test to be performed at 26 wee ks gestation 07/10/25 -?-?-?-?-?-?-?-?-?-?-?-?- 22w 5d 79.946 kg 119/73 absent unknown 22 145 active Continued complaints of vaginal itching and burning. Patient states that she has 2 more days of treatment with the metronidazole. And her last NuSwab did culture positive for BV however GC chlamydia and yeast were negative. Reports movement. Denies leaking or bleeding. Patient still wants to do Patient will be transferred to Dr. Barboza at 32 weeks for . Discussed comfort measures for vaginitis. I gave Diflucan 151 tab p.o. x 3 days. Discussed comfort measures for vaginitis. labor precautions reviewed. Increase fluids. And keep next appointment with OB LAQUITA Calculator Estimated Delivery Date Method Current WG Current Estimate 11/08/25 LMP (Certain) 22w 5d Other Estimates 11/08/25 Ultrasound #1 22w 5d Notes Visit Date: 07/08/25 Last Updated by: Murali Peña MD - [facility] ultrasound (June 27, 2025): - Cervical length: 4.37 cm - Normal ovaries - presentation: Cephalic - Placenta: Posterior, no previa - Anatomy survey: Normal - Initial labs: - Hepatitis B: Negative - Hepatitis C: Negative - RPR: Nonreactive - Rubella: Immune - Blood group: B-positive - Antibody screen: Negative - HIV: Negative - Gonorrhea: Negative - Chlamydia: Negative - Hemoglobin: 13.6 g/dL - Platelets: 247 x10^3/?L Visit Date: 06/26/25 Last Updated by: Razia Caicedo CNM B+,abs-,rpr;;nr, rub imm, hbsag-,hiv-,GC/CT-, HC-, NIPT/carrier screen- REPEAT c/s Visit Date: 04/14/25 Last Updated by: Razia Caicedo CNM 19 yo . close spacing. lmp 02/01/25, EDC 11/10/25. sono: 9w2. EDC 11/10/25 Office Procedures OB Clinic LOC & Office Proc's Nursing/Assessment Patient Status: Established Patient OB Clinic Nursing Assessment: Medication Reconciliation, Update PMH in EMR and Vital Signs OB Clinic Coordination of Care: Education Complex Pt/Fam, Consent,records obtained, informed consent and Staff clarify orders Special Needs: Heart tones Established Patient Charge Established Patient Point Assignment: 95 Established Patient Point Charge: EP Level 3 (80-115) Assessment & Plan Diagnosis / Problem List (1) Vaginitis: Status: Acute Qualifiers: Chronicity: acute Qualified Code(s): N76.0 - Acute vaginitis (2) Encounter for supervision of normal in multigravida in second trimester: Status: Acute (3) Maternal care for low transverse scar from previous delivery: Status: Acute Plan Diflucan 150 p.o. daily x 3. Comfort measures for vaginitis reviewed. Complete the metronidazole. Keep appointment with Dr. Mayorga at her next visit. Discussed labor precautions. Increase fluids. And I advised patient to use [id number] Gyne-Lotrimin if she can afford it for comfort Additional Plan Follow Up: 2 Weeks (obc)
== END 2025-07-10 15:02 | disposition home or self-care (01) ==
LOC: HODSOBC 14:28
PROVIDERS: Supervising Provider Advanced Practice Midwife; Visit Provider Advanced Practice Midwife
DX: O09.292 Supervision of pregnancy with other poor reproductive or obstetric history, second trimester (principal); O34.211 Maternal care for low transverse scar from previous cesarean delivery; O09.892 Supervision of other high risk pregnancies, second trimester; O23.592 Infection of other part of genital tract in pregnancy, second trimester; N76.0 Acute vaginitis; Z3A.22 22 weeks gestation of pregnancy
CPT/HCPCS: 99213; G0463

== ENCOUNTER 2025-07-16 11:48 | Observation (INO) | payer MEDICAID, SELFPAY ==
[2025-07-16 11:50] VITALS: BMI 30.4
--- NOTE | 2025-07-16 12:08 | XR_ITS ---
Examination: Complete OB ultrasound greater than 14 weeks Date and time of exam: July 16, 2025, 1223 hours INDICATIONS: Onset pelvic pain today, labor evaluation. Findings: Viable intrauterine single fetus with single amniotic sac presentation cephalic Cardiac motion 155 BPM Placenta posterior grade 1 Umbilical cord insert 3 vessel seen Amniotic fluid volume adequate spine posterior Cervix 3.6 cm Ovaries obscured by bowel gas. Composite estimated gestational age based on BPD, head circumference, abdominal circumference, femur length is 22 weeks 6 days Estimated weight 550 g. Survey of intracranial anatomy, spinal anatomy, abdominal anatomy, four-chamber heart performed with no abnormalities identified. Impression: Viable intrauterine gestation cephalic presentation.
[2025-07-16 12:16] VITALS: BP 106/58; PULSE 75
[2025-07-16 12:20] VITALS: PULSE 67; RESP 16; TEMP 36.8
[2025-07-16 12:46] VITALS: BP 105/62; PULSE 74
[2025-07-16 12:57] LABS: Collection Type, Urine Clean Catch
[2025-07-16 13:13] LABS: Bacteria,Urine Rare; Bilirubin,Urine Negative (Negative); Blood,Urine Negative (Negative); Clarity,Urine Hazy (Clear/Hazy); Color,Urine Lt-Yellow (Lt Yel-Yel); Culture Indicated,Urine Not Indicated; Glucose, Urine Negative (Negative); Ketones,Urine Negative (Negative); Leukocyte Esterase,Urine Positive (Negative); Nitrite,Urine Negative (Negative); PH,Urine 7.5 (5.0-7.0); Protein,Urine Negative (Neg - Trace); RBC,Urine 24 /hpf (0-3); Specific Gravity,Urine 1.009 (1.001-1.035); Squamous Epithelial Cell,Urine 3 /hpf (0-5); Urobilinogen,Urine Negative mg/dL (0.0-1.0); WBC,Urine 8 /hpf (0-5)
[2025-07-16 13:16] VITALS: BP 80/45; PULSE 72
[2025-07-16 13:24] VITALS: BP 104/61; PULSE 73
== END 2025-07-16 14:05 | disposition home or self-care (01) ==
PROVIDERS: Admitting Provider Obstetrics & Gynecology; Visit Provider Obstetrics & Gynecology
DX: O26.892 Other specified pregnancy related conditions, second trimester (principal); Z3A.22 22 weeks gestation of pregnancy; R10.2 Pelvic and perineal pain
CPT/HCPCS: 59899; 76805; 81001

== ENCOUNTER 2025-08-13 10:19 | Outpatient (AMB) | payer MEDICAID, SELFPAY ==
[2025-08-13 10:27] VITALS: BP 126/74; PULSE 78; RESP 14; TEMP 36.6; O2SAT 98; BMI 30.6
--- NOTE | 2025-08-13 10:27 | AMB.OBVISIT ---
Vital Signs 08/13/25 10:27 Height 1.63 m Height Method Stated Weight 80.853 kg Weight Measurement Method Standing Scale BMI 30.6 BP 126/74 Blood Pressure Source Automatic Cuff Blood Pressure Location Left Upper Arm Position Sitting Respiration 14 Pulse 78 Pulse Source Monitor Temp 97.8 F Temp Source Oral Pulse Oximetry (%) 98 Oxygen Delivery Method Room Air Allergies/Home Meds Allergies & Medications Allergies No Known Allergies Allergy (Verified 09/04/25 17:45) Medication Reconciliation vits no.124-ferrous fum 27 mg iron-folic acid 800 mcg tablet ( Vitamin) 1 tab PO DAILY 06/30/24 [History Confirmed 09/04/25] docusate sodium 100 mg capsule (Stool Softener) 100 mg PO QDAY 30 days #30 caps 09/05/25 [Rx] ferrous sulfate 325 mg (65 mg iron) tablet 325 mg PO BID 60 days #120 tabs 09/05/25 [Rx] Intake Visit Data Collection New Patient or Established: Established Patient (seen at [facility] within 3 years) Reason for Visit:: CARE Seen by Clinical Staff ONLY (RN/MA): 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 1. Little interest or pleasure in doing things: not at all 2. Feeling down, depressed, or hopeless: not at all Total score: 0 PHQ-9 3. Trouble falling or staying asleep, or sleeping too much: Not at all 4. Feeling tired or having little energy: Not at all 5. Poor appetite or overeating: Not at all 6. Feeling bad about yourself - or that you are a failure or have let yourself or your family down: Not at all 7. Trouble concentrating on things, such as reading the newspaper or watching television: Not at all 8. Moving or speaking so slowly that other people could have noticed? - Or the opposite - being so fidgety or restless that you have been moving around a lot more than usual: not at all 9. Thoughts that you would be better off or of hurting yourself in some way: Not at all Total score: 0 Source: Developed by Drs. Simeon Martinez, Indu Javed, Juanito Eaton and colleagues, with an educational emil from [employer]. 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 no sab complaints,no vag bleeding No complaints. denies vaginal bleeding, no SAB complaints schedule NT scan, NIPT and carrier screen today, continue PNV, fluid rtc 4 week obc 05/13/25 <del>?</del> 14w 3d 77.337 kg 111/71 absent unknown 14 145 active forgot to do labs. no sab complaints, light FM, no leaking,bleeding or discomfort lab slip for OB panel and NIPT given. f/u mfm scan in 6 week, discuss sab precaution. rtc 4 week 06/10/25 <del>?</del> 18w 3d 78.528 kg 101/67 absent unknown 18 145 active NS to lab. Difficult to get labs done with 2 babies. denies PTL complaints, no leaking or bleeding. MFM appt 06/27. prev c/s x1, spouse will get vasectoy I gave patient another lab slip for OB panel, AFP, NIPT. Keep OB appointment for anatomy scan June 27. Increase fluids. Continue prenatals. Return in 4 weeks with OB. I talked with patient about tubal ligation with a repeat versus vasectomy for partner. Discussed PTL precautions and increase fluids. Return in 4 weeks 06/26/25 <del>?</del> 20w 5d 79.152 kg 110/69 absent unknown 20 145 active Complains of white clumpy discharge and discomfort with voiding. 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 Reports movement. Denies bleeding, cramps, leaking. Patient has an appointment with Dr. Mayorga because a repeat . Maternal- medicine ultrasound is pending Patient will be scheduled for maternal- medicine sono. Reminded to get labs. NuSwab plus today. Prescription for Gyne-Lotrimin 2% x 3 days with a refill. I also gave refill on prenatals and instructed patient to take her Macrobid 100 twice daily x 7. Increase fluids. labor precautions. Follow-up with OB 07/08/25 <del>?</del> 22w 3d 80.031 kg 109/70 absent unknown 22 155 active at 22 weeks 3 days gestation, presenting for first visit. History of previous in 2023 due to failure to dilate. Recent [facility] ultrasound shows normal anatomy survey, cervical length 4.37 cm, cephalic presentation, and posterior placenta without previa. Initial labs within normal limits, including negative infectious disease screenings. Urinalysis positive for coagulase-negative staph >100,000 cfu. Maternity genome testing negative. Due to previous , patient requires transfer of care for potential vaginal after () attempt, as current facility does not allow this option. Plan - Transfer care to Dr. Eulalio Barboza at [facility] at 32 weeks gestation - Next appointment scheduled in 4 weeks - Continue vitamins - Glucose test to be performed at 26 weeks gestation 07/10/25 <del>?</del> 22w 5d 79.946 kg 119/73 absent unknown 22 145 active Continued complaints of vaginal itching and burning. Patient states that she has 2 more days of treatment with the metronidazole. And her last NuSwab did culture positive for BV however GC chlamydia and yeast were negative. Reports movement. Denies leaking or bleeding. Patient still wants to do Patient will be transferred to Dr. Barboza at 32 weeks for . Discussed comfort measures for vaginitis. I gave Diflucan 151 tab p.o. x 3 days. Discussed comfort measures for vaginitis. labor precautions reviewed. Increase fluids. And keep next appointment with OB 08/13/25 <del>?</del> 27w 4d 80.853 kg 126/74 absent unknown 38 145 active - She reports experiencing [place] contractions. - Patient denies any other contractions or issues. - movement is noted to be active. - Patient has transferred care to [place] for planned vaginal after (). - Already had an appointment last month with [place]. - Next appointment scheduled for September 12. - Transfer of care to [place] for (vaginal after ) - One hour glucose test to be completed within the next 2 weeks - Third trimester labs to include glucose, CBC for anemia check, and RPR test - Ultrasound order to be submitted with insurance authorization (PPO requires prior authorization) - Follow-up appointment scheduled for September 12 in [place] - Medical records to be faxed to [place] as needed for continuity of care LAQUITA Calculator Estimated Delivery Date Method Current WG Current Estimate 11/08/25 LMP (Certain) 33w 0d Other Estimates 11/08/25 Ultrasound #1 33w 0d Notes Visit Date: 07/08/25 Last Updated by: Murali Peña MD - [facility] ultrasound (June 27, 2025): - Cervical length: 4.37 cm - Normal ovaries - presentation: Cephalic - Placenta: Posterior, no previa - Anatomy survey: Normal - Initial labs: - Hepatitis B: Negative - Hepatitis C: Negative - RPR: Nonreactive - Rubella: Immune - Blood group: B-positive - Antibody screen: Negative - HIV: Negative - Gonorrhea: Negative - Chlamydia: Negative - Hemoglobin: 13.6 g/dL - Platelets: 247 x10^3/?L Visit Date: 06/26/25 Last Updated by: Razia Caicedo CNM B+,abs-,rpr;;nr, rub imm, hbsag-,hiv-,GC/CT-, HC-, NIPT/carrier screen- REPEAT c/s Visit Date: 04/14/25 Last Updated by: Razia Caicedo CNM 19 yo . close spacing. lmp 02/01/25, EDC 11/10/25. 6/12/11 sono: 9w2. EDC 11/10/25 Office Procedures [facility] LOC & Office Proc's Nursing/Assessment Patient Status: Established Patient OB Clinic Nursing Assessment: Medication Reconciliation, Update PMH in EMR and Vital Signs OB Clinic Coordination of Care: Complex Care and Chronic Disease 1-5, Consent,records obtained, informed consent, Education Simp Pt/Fam, Lab and Imaging orders, Results/Orders obtained and Staff clarify orders Special Needs: Heart tones Established Patient Charge Established Patient Point Assignment: 135 Established Patient Point Charge: EP Level 4 (120-155) Assessment & Plan Diagnosis / Problem List (1) Uterine size date discrepancy: Status: Acute (2) Maternal care for low transverse scar from previous delivery: Status: Acute Plan Problem List - , 27 weeks 4 days - [place] contractions - History of Section (ICD-10: Z98.891) - Planned Vaginal After () (ICD-10: Z37.9) Assessment 27 weeks and 4 days gestation with patient experiencing [place] contractions, which are expected at this gestational age. heart rate is normal at 139-140 bpm with active movement noted. One hour glucose tolerance test is pending. Patient has established care transfer to [place] for (vaginal after ) management. Plan - Transfer of care to [place] for (vaginal after ) - One hour glucose test to be completed within the next 2 weeks - Third trimester labs to include glucose, CBC for anemia check, and RPR test - Ultrasound order to be submitted with insurance authorization (PPO requires prior authorization) - Follow-up appointment scheduled for September 12 in [place] - Medical records to be faxed to [place] as needed for continuity of care 1. Progress Reviewed gestational age (27 weeks and 4 days), growth, and heart rate (139-140 bpm). Planned frequent visits (every 2 weeks until 36 weeks, then weekly). 2. Instructed patient to monitor movements and report decreases immediately. 3. Testing Counseled on routine third-trimester labs per guidelines (glucose test, anemia check, and RPR test). Discussed potential need for ultrasound or monitoring based on risk factors. 4. Preeclampsia Precaution Educated on preeclampsia signs: severe headache, vision changes, right upper quadrant pain, sudden swelling. Advised urgent reporting of symptoms and discussed blood pressure monitoring if high risk. 5. Labor Precautions Reviewed labor signs: regular contractions, pelvic pressure, back pain, bleeding, or fluid leakage. Instructed to seek immediate care for these symptoms. 6. Lifestyle and Delivery Preparation Reinforced vitamins, nutrition, and safe activity. Discussed plan, pain management, and . Advised on labor preparation (e.g., hospital bag) and expectations. 7. Psychosocial Support Assessed emotional well-being and offered resources for mental health or parenting support.
== END 2025-08-13 10:59 | disposition home or self-care (01) ==
LOC: HODSOBC 10:19
PROVIDERS: Supervising Provider Obstetrics & Gynecology; Visit Provider Obstetrics & Gynecology
DX: O09.292 Supervision of pregnancy with other poor reproductive or obstetric history, second trimester (principal); O34.211 Maternal care for low transverse scar from previous cesarean delivery; O09.892 Supervision of other high risk pregnancies, second trimester; O26.842 Uterine size-date discrepancy, second trimester; O47.02 False labor before 37 completed weeks of gestation, second trimester; Z3A.27 27 weeks gestation of pregnancy
CPT/HCPCS: 99214; G0463

== ENCOUNTER → 2025-08-20 | Outpatient (CLI) | payer MEDICAID, SELFPAY ==
--- NOTE | 2025-08-20 11:41 | XR_ITS ---
Examination: Complete OB ultrasound greater than 14 weeks Date and time of exam: August 20, 2025, 1140 hours INDICATIONS: Pelvic pain and pressure 1 week, diagnosis size dates discrepancy Findings: Viable intrauterine single fetus with single amniotic sac presentation breech Cardiac motion 137 bpm Placenta posterior grade 2 Umbilical cord insertion 3 vessels seen Amniotic fluid index 13.2 cm spine anterior Cervix 3.1 cm Right ovary 4.2 cm arterial flow. Left ovary 4.0 cm arterial flow. Composite estimated gestational age based on BPD, head circumference, abdominal circumference, femur length is 28 weeks 4 days. Estimated weight 1275 g Survey of intracranial anatomy, spinal anatomy, abdominal anatomy, four-chamber heart performed with no abnormalities identified. Impression: Viable intrauterine gestation breech presentation.
== END | disposition home or self-care (01) ==
LOC: CDIM 10:35
PROVIDERS: Referring Provider Obstetrics & Gynecology; Visit Provider Obstetrics & Gynecology
DX: O32.1XX0 Maternal care for breech presentation, not applicable or unspecified (principal); Z3A.28 28 weeks gestation of pregnancy
CPT/HCPCS: 76805

== ENCOUNTER 2025-09-02 08:03 | Outpatient (AMB) | payer MEDICAID, SELFPAY ==
--- NOTE | 2025-09-02 08:05 | AMB.OBVISIT ---
Allergies/Home Meds Allergies & Medications Allergies No Known Allergies Allergy (Verified 09/02/25 08:05) Medication Reconciliation vits no.124-ferrous fum 27 mg iron-folic acid 800 mcg tablet ( Vitamin) 1 tab PO DAILY 06/30/24 [History Confirmed 09/02/25] vits no.126-ferrous fum 28 mg iron-folic acid 800 mcg tablet (Classic ) 0.126 - 28 tab PO DAILY 30 days #60 tabs 03/13/25 [Rx Confirmed 09/02/25] clotrimazole 2 % vaginal cream (Gyne-Lotrimin) 1 appful vaginal QHS 3 days #21 grams 06/26/25 [Rx Confirmed 09/02/25] Intake Visit Data Collection New Patient or Established: Established Patient (seen at [facility] within 3 years) Reason for Visit:: CARE/ DISCUSS LAB RESULTS Consent obtained for Telemed Visit: Yes Seen by Clinical Staff ONLY (RN/MA): No 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: No Do You Feel Safe at Home: Yes Authorities Contacted: N/A PCP or OBGYN visit in last 3 months: Yes Hx Now: Yes Are you currently on any form of Control: No Pain Present Currently: No Pain Scale Used: Higgins-Madsen/Numerical Pain scale:: 0 Smoking Status Smoking Status: Never smoker Immunizations Flu Vaccine in the Last 12 Months: No Flu Vaccine Exclusion Criteria: Refused by Patient For Telemed visit only Telemed Video/Phone Visit: Yes Verbal consent obtained for Telemed visit?: Yes Questionnaires Covid-19 Vaccine Questionnaire Has patient been vacinated for Covid-19 Have you been vacinated for Covid-19: No PHQ-9 PHQ-2 Over the last 2 weeks, how often have you been bothered by any of the following problems? 1. Little interest or pleasure in doing things: not at all 2. Feeling down, depressed, or hopeless: not at all Total score: 0 PHQ-9 3. Trouble falling or staying asleep, or sleeping too much: Not at all 4. Feeling tired or having little energy: Not at all 5. Poor appetite or overeating: Not at all 6. Feeling bad about yourself - or that you are a failure or have let yourself or your family down: Not at all 7. Trouble concentrating on things, such as reading the newspaper or watching television: Not at all 8. Moving or speaking so slowly that other people could have noticed? - Or the opposite - being so fidgety or restless that you have been moving around a lot more than usual: not at all 9. Thoughts that you would be better off or of hurting yourself in some way: Not at all Total score: 0 Source: Developed by Drs. Simeon Martinez, Indu Javed, Juanito Eaton and colleagues, with an educational emil from [email or web address]. 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 She reports current symptoms of pain, nausea, and heavy periods, with breakouts occurring during menstruation. The patient has a known history of uterine fibroids and was previously seen by an bowling alley manager in [place], with her last appointment approximately one year ago in September 2020. She was dissatisfied with the care received there and is seeking fibroid removal. Previous providers gave conflicting recommendations, with one initially agreeing to remove the fibroids and another subsequently declining to perform the procedure, stating that hysterectomy would be necessary since she has never had children. The patient expresses interest in future and desires fibroid removal to preserve fertility. She denies any chronic illness and is not currently taking any medications. Her last Pap smear was performed in July 2024, and she reports having one male partner with no concerns for sexually transmitted diseases. Medical History: - Leiomyomas (uterine fibroids) with largest measuring 6.9 centimeters on ultrasound from August 2020 - Obesity - Frequency of urination - Dysuria - Pelvic and perineal pain Obstetric History: - GTPAL: G0 T0 L0 - Not currently - No prior pregnancies Social History: - Relationship Status: One male partner Diagnostic Test Results and Labs: - Pelvic ultrasound (08-21-2020): Multiple heterogeneous uterine masses with largest measuring 6.9 cm and one in lower uterine segment measuring 1.5 cm. Uterus measures 13.4 x 7.4 x 9.7 cm including cervix. Endometrial stripe 5 mm. Right ovary 3.7 cm, left ovary obscured. Impression: multiple leiomyomas, several follicles in right ovary. Care OB Visit Log OB Flowsheet Initial Weight: Not Recorded Date <del>?</del> EGA Weight BP Alb Glu CTX Pres Fundal ht FHR Mov Dilation Station Effacement Hx Notes Visit Note 04/14/25 <del>?</del> 10w 2d 79.946 kg 120/75 absent unknown 10 156 absent Doing well, no OB complaints. no sab complaints,no vag bleeding No complaints. denies vaginal bleeding, no SAB complaints schedule NT scan, NIPT and carrier screen today, continue PNV, fluid rtc 4 week obc 05/13/25 <del>?</del> 14w 3d 77.337 kg 111/71 absent unknown 14 145 active forgot to do labs. no sab complaints, light FM, no leaking,bleeding or discomfort lab slip for OB panel and NIPT given. f/u mfm scan in 6 week, discuss sab precaution. rtc 4 week 06/10/25 <del>?</del> 18w 3d 78.528 kg 101/67 absent unknown 18 145 active NS to lab. Difficult to get labs done with 2 babies. denies PTL complaints, no leaking or bleeding. MFM appt 06/27. prev c/s x1, spouse will get vasectoy I gave patient another lab slip for OB panel, AFP, NIPT. Keep OB appointment for anatomy scan June 27. Increase fluids. Continue prenatals. Return in 4 weeks with OB. I talked with patient about tubal ligation with a repeat versus vasectomy for partner. Discussed PTL precautions and increase fluids. Return in 4 weeks 06/26/25 <del>?</del> 20w 5d 79.152 kg 110/69 absent unknown 20 145 active Complains of white clumpy discharge and discomfort with voiding. Patient did not pick up and delivery driver her Macrobid as directed. Reports movement. Denies bleeding, cramps, leaking. Patient has an appointment with Dr. Mayorga because a repeat . Maternal- medicine ultrasound is pending Patient will be scheduled for maternal- medicine sono. Reminded to get labs. NuSwab plus today. Prescription for Gyne-Lotrimin 2% x 3 days with a refill. I also gave refill on prenatals and instructed patient to take her Macrobid 100 twice daily x 7. Increase fluids. labor precautions. Follow-up with OB 07/08/25 <del>?</del> 22w 3d 80.031 kg 109/70 absent unknown 22 155 active at 22 weeks 3 days gestation, presenting for first visit. History of previous in 2023 due to failure to dilate. Recent [facility] ultrasound shows normal anatomy survey, cervical length 4.37 cm, cephalic presentation, and posterior placenta without previa. Initial labs within normal limits, including negative infectious disease screenings. Urinalysis positive for coagulase-negative staph >100,000 cfu. Maternity genome testing negative. Due to previous , patient requires transfer of care for potential vaginal after () attempt, as current facility does not allow this option. Plan - Transfer care to Dr. Eulalio Barboza at [facility] at 32 weeks gestation - Next appointment scheduled in 4 weeks - Continue vitamins - Glucose test to be performed at 26 weeks gestation 07/10/25 <del>?</del> 22w 5d 79.946 kg 119/73 absent unknown 22 145 active Continued complaints of vaginal itching and burning. Patient states that she has 2 more days of treatment with the metronidazole. And her last NuSwab did culture positive for BV however GC chlamydia and yeast were negative. Reports movement. Denies leaking or bleeding. Patient still wants to do Patient will be transferred to Dr. Barboza at 32 weeks for . Discussed comfort measures for vaginitis. I gave Diflucan 151 tab p.o. x 3 days. Discussed comfort measures for vaginitis. labor precautions reviewed. Increase fluids. And keep next appointment with OB LAQUITA Calculator Estimated Delivery Date Method Current WG Current Estimate 11/08/25 LMP (Certain) 30w 3d Other Estimates 11/08/25 Ultrasound #1 30w 3d Notes Visit Date: 07/08/25 Last Updated by: Murali Peña MD - [facility] ultrasound (June 27, 2025): - Cervical length: 4.37 cm - Normal ovaries - presentation: Cephalic - Placenta: Posterior, no previa - Anatomy survey: Normal - Initial labs: - Hepatitis B: Negative - Hepatitis C: Negative - RPR: Nonreactive - Rubella: Immune - Blood group: B-positive - Antibody screen: Negative - HIV: Negative - Gonorrhea: Negative - Chlamydia: Negative - Hemoglobin: 13.6 g/dL - Platelets: 247 x10^3/?L Visit Date: 06/26/25 Last Updated by: Razia Caicedo CNM B+,abs-,rpr;;nr, rub imm, hbsag-,hiv-,GC/CT-, HC-, NIPT/carrier screen- REPEAT c/s Visit Date: 04/14/25 Last Updated by: Razia Caicedo CNM 19 yo . close spacing. lmp 02/01/25, EDC 11/10/25. /12/11 sono: 9w2. EDC 11/10/25 Exam General General Appearance: alert, in no apparent distress and healthy appearing Head Head exam: atraumatic Neck Neck exam: Present normal inspection and trachea midline Chest Chest inspection: Present normal inspection and symmetric chest wall rise External exam: Present normal external exam; Absent tenderness Neuro Neurological exam: Present oriented X3 Psych Psychiatric exam: Present normal affect and normal mood Office Procedures OBC Clinic LOC & Office Proc's Nursing/Assessment Patient Status: Established Patient OB Clinic Nursing Assessment: Medication Reconciliation and Update PMH in EMR OB Clinic Coordination of Care: Complex Care and Chronic Disease 1-5, Consent,records obtained, informed consent, Education Simp Pt/Fam, Lab and Imaging orders, Results/Orders obtained and Staff clarify orders Established Patient Charge Established Patient Point Assignment: 90 Telehealth If patient is seen using Teleconference methods, complete New/Est section, but DO NOT reyna points only reyna the correct Telemed visit type Telemed Phone/Video with patient at home & Dr,PA,DOPER: Yes Assessment & Plan Diagnosis / Problem List (1) Uterine size date discrepancy: Status: Acute (2) Maternal care for low transverse scar from previous delivery: Status: Acute Plan Uterine leiomyomas Assessment: Patient has multiple uterine leiomyomas with the largest measuring 6.9 cm based on pelvic ultrasound from August 2020. The large fibroid is occupying significant uterine space and would prevent from progressing normally. There is also a smaller 1.5 cm fibroid in the lower uterine segment. Current symptoms include pain, nausea, heavy menstrual periods, and breakouts during menstruation. The patient desires future and myomectomy with uterine repair is feasible to preserve fertility. 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 Current large uterine fibroid prevents normal progression due to space occupation within the uterus. Fertility preservation is a priority in treatment planning. Plan: - Proceed with myomectomy to preserve uterine function and enable future - Allow 6 months for complete uterine healing before attempting conception - Hollow Core Door Frame Assembler regarding mandatory delivery for any future pregnancies following myomectomy
== END 2025-09-02 09:55 | disposition home or self-care (01) ==
PROVIDERS: Supervising Provider Obstetrics & Gynecology; Visit Provider Obstetrics & Gynecology
DX: O09.293 Supervision of pregnancy with other poor reproductive or obstetric history, third trimester (principal); O34.211 Maternal care for low transverse scar from previous cesarean delivery; O09.893 Supervision of other high risk pregnancies, third trimester; O26.843 Uterine size-date discrepancy, third trimester; Z3A.30 30 weeks gestation of pregnancy
CPT/HCPCS: 99212; G0463

== ENCOUNTER 2025-09-04 18:14 | Emergency (ER) | payer MEDICAID, SELFPAY ==
[2025-09-04] VITALS (10 sets, daily range): BP systolic 103–108; BP diastolic 59–68; PULSE 74–85; RESP 16–100; TEMP 36.8–37.1; O2SAT 97–100; BMI 31.0
--- NOTE | 2025-09-04 18:37 | EKG_ITS ---
[facility] Test Date: 2025-09-04 Pat Name: IRON LINK Department: Room: - Gender: Female Clinical Resource Manager: : 2005 Requested By: Bandar Carmichael Order Number: [id number] Reading MD: Bandar Carmichael Measurements Intervals [place] Rate: 85 P: 64 ME: 162 QRS: 42 QRSD: 86 T: 3 QT: 351 QTc: 419 Interpretive Statements SINUS RHYTHM POSSIBLE RIGHT VENTRICULAR CONDUCTION DELAY [RSR (QR) IN V1/V2] NONSPECIFIC T-WAVE ABNORMALITY No previous ECG available for comparison /store/S0/[id number].pdf
--- NOTE | 2025-09-04 18:56 | PD.EDRME ---
Rapid Medical Screening Exam E Arrival date/time: 09/04/25 18:14 20F at approximately 30 weeks and with no significant PMH presents to ED with 1 day of dizziness, CP, and SOB, especially when standing and walking. Patient denies URI symptoms and anxiety. Patient was cleared by OB. Chief Complaint: Shortness of Breath/Dyspnea Vital signs: Vital Signs Pulse Rate 76 09/04/25 17:31 Blood Pressure 108/59 L 09/04/25 17:31 Exam: Clear lungs and RRR. Normal WOB. Clinical Impression: anxiety vs orthostatic hypotension vs PE vs pre-eclampsia vs URI vs PNA vs costochondritis
[2025-09-04 19:28] LABS: Collection Type, Urine Clean Catch
[2025-09-04 19:30] LABS: Basophils # (Auto) 0.0 Thou/mm3 (0.0-0.2); Basophils % (Auto) 0 % (0-2.5); Eosinophils # (Auto) 0.1 Thou/mm3 (0.0-0.5); Eosinophils % (Auto) 1 % (0-10); Hematocrit 31.2 % (36.0-46.0); Hemoglobin 10.7 g/dL (12.0-16.0); Immature Granulocytes Auto 0.04 Thou/mm3 (0.00-0.00); Lymphocytes # (Auto) 1.9 Thou/mm3 (1.0-4.8); Lymphocytes % (Auto) 19 % (10-50); Mean Corpuscular HGB Conc 34.3 g/dl (31.0-37.0); Mean Corpuscular Hemoglobin 29.8 pg (25.0-35.0); Mean Corpuscular Volume 87 fL (80-100); Monocytes # (Auto) 0.6 Thou/mm3 (0.0-0.8); Monocytes % (Auto) 6 % (0-12); Neutrophils # (Auto) 7.3 Thou/mm3 (1.8-7.7); Neutrophils % (Auto) 74 % (37-80); Nucleated Red Blood Cell # 0.00 Thou/mm3 (0.00-0.00); Nucleated Red Blood Cell % 0 /100 WBC (0); Platelet Count 224 Thou/mm3 (140-440); RDW Standard Deviation 40.9 fL (36.4-46.3); Red Blood Count 3.59 Miln/mm3 (4.00-5.20); White Blood Count 9.9 Thou/mm3 (3.6-11.0)
[2025-09-04 19:38] LABS: Amphetamine/Methamp Scrn,U Negative (Negative); Barbiturate Screen,Urine Negative (Negative); Benzodiazepines Screen,Urine Negative (Negative); Benzoylecgonine Screen, Ur Negative (Negative); Fentanyl Screen,Urine Negative (Negative); Opiate Screen,Urine Negative (Negative); THC Screen,Urine Negative (Negative)
[2025-09-04 19:43] LABS: Bilirubin,Urine Negative (Negative); Blood,Urine Negative (Negative); Clarity,Urine Clear (Clear/Hazy); Color,Urine Colorless (Lt Yel-Yel); Culture Indicated,Urine Not Indicated; Glucose, Urine Negative (Negative); Ketones,Urine Negative (Negative); Leukocyte Esterase,Urine Positive (Negative); Nitrite,Urine Negative (Negative); PH,Urine 7.0 (5.0-7.0); Protein,Urine Negative (Neg - Trace); RBC,Urine 1 /hpf (0-3); Specific Gravity,Urine 1.003 (1.001-1.035); Squamous Epithelial Cell,Urine 2 /hpf (0-5); Urobilinogen,Urine Negative mg/dL (0.0-1.0); WBC,Urine 8 /hpf (0-5)
[2025-09-04 20:00] LABS: B-Type Natriuretic Peptide 31 pg/mL (0-100)
[2025-09-04 20:01] LABS: Alanine Aminotransferase < 7 U/L (10-49); Albumin, Serum 3.9 gm/dL (3.5-5.0); Albumin/Globulin Ratio 1.8 (1.2-2.2); Alkaline Phosphatase 98 U/L (46-116); Anion Gap 11 (7-16); Aspartate Amino Transferase 11 U/L (0-34); BUN/Creatinine Ratio 8 Ratio (12-20); Bilirubin,Total 0.4 mg/dL (0.3-1.2); Blood Urea Nitrogen 5 mg/dL (9-23); Calcium 9.0 mg/dL (8.3-10.6); Calcium (Corrected) 9.1 mg/dL (8.5-10.1); Carbon Dioxide 23.0 mMol/L (20.0-31.0); Chloride 105 mMol/L (98-107); Creatinine (Component) 0.6 mg/dL (0.6-1.3); Estimated Creatinine Clearance 153.7 mL/min (>60); Globulin 2.2 gm/dL (2.3-3.5); Glucose 107 mg/dL (74-106); Osmolality,Calculated 274 (275-295); Potassium 3.6 mMol/L (3.4-5.1); Sodium 139 mMol/L (136-145); Total Protein 6.1 gm/dL (5.7-8.2); Troponin I < 0.002 ng/mL (0.0-0.045); eGFR > 60 See Note
--- NOTE | 2025-09-04 20:28 | PD.EDSOB ---
ED SOB =RME/HPI General Chief Complaint: Shortness of Breath/Dyspnea Stated Complaint: SOB, DIZZY, CP Time Seen by Provider: 09/04/25 20:16 Arrival date/time: 09/04/25 18:14 RME / HPI RME / HPI Narrative: 09/04/25 18:14 20F at approximately 30 weeks and with no significant PMH presents to ED with 1 day of dizziness, CP, and SOB, especially when standing and walking. Patient denies URI symptoms and anxiety. Patient was cleared by OB. Exam: Clear lungs and RRR. Normal WOB. Impression: anxiety vs orthostatic hypotension vs PE vs pre-eclampsia vs URI vs PNA vs costochondritis Related Data Home Medications ?Medication ?Instructions ?Recorded ?Confirmed vits no.124-ferrous fum 1 tab PO DAILY 06/30/24 09/04/25 27 mg iron-folic acid 800 mcg tablet ( Vitamin) Allergies Allergy/AdvReac Type Severity Reaction Status Date / Time No Known Allergies Allergy Verified 09/04/25 17:45 Review of Systems Review of Systems Narrative Review of Systems: Review of system reviewed and within normal limits except mentioned in HPI ED Exam Narrative Physical exam: VITAL SIGNS: Reviewed. GENERAL APPEARANCE: Alert and interactive, follows commands, no acute distress, HEAD AND FACE: Non-traumatic. ENT: PERRL, pink conjunctivitis, eyelid no trauma, Mucous membrane moist. NECK: Supple, nontender, no nuchal rigidity. CHEST: No tenderness, no crepitus, no paradoxical movement, no retractions. LUNGS: Clear, well ventilated, symmetric, no rales, no wheezing, no ronchi, no stridor, good breath sounds bilaterally. HEART: Regular rate, regular rhythm, no murmur, no gallops. ABDOMEN: Soft, positive bowel sounds, gravid abdomen, nontender, no rebound, no masses, RECTAL: Deferred. GENITAL: Deferred. NEUROLOGICAL: Gross motor function intact sensory function intact, Appropriate for age. MUSCULOSKELETAL: low back nontender, full range of motion. EXTREMITIES: Nontender, full range of motion. SKIN: Color pink, dry, no rash, no lacerations, no abrasions, no contusions. LYMPHATICS: Deferred. Course Quality Measures none Orders Category Date Time Status Place in Observation Status Routine Admission 09/04/25 17:44 Active EKG (ED ONLY) *Do not use* NOW Care 09/04/25 18:37 Completed Non-Stress Test Now Care 09/04/25 17:45 Active EKG (ED Only) Stat Exams 09/04/25 18:37 Draft BNP [B-Type Natriuretic Peptide] Stat Lab 09/04/25 19:21 Completed CBC Stat Lab 09/04/25 19:21 Completed CMP [Comprehensive Metabolic Panel] Stat Lab 09/04/25 19:21 Completed Drug Screen,Urine Stat Lab 09/04/25 19:02 Completed Troponin I Stat Lab 09/04/25 19:21 Completed Urinalysis, C/S if Indicated Stat Lab 09/04/25 19:02 Completed Vital Signs Vital signs: Vital Signs Pulse Rate 76 09/04/25 17:31 Blood Pressure 108/59 L 09/04/25 17:31 Shortness of Breath / Dyspnea MDM Narrative MDM Narrative:: 20F at approximately 30 weeks and with no significant PMH presents to ED with 1 day of dizziness, CP, and SOB, especially when standing and walking. Patient denies URI symptoms and anxiety. Patient was cleared by OB. EKG shows sinus rhythm, ventricular rate of 85 bpm, no ST segment elevation depression noted. Patient's workup today all came back unremarkable except for anemia hemoglobin 10.7, hematocrit of 31.2. Urinalysis came back with no UTI. Patient is not having symptoms of dysuria or vaginal bleeding or spotting. She was seen in the [employer]/labor delivery and was cleared. On reevaluation prior to discharge patient is not having any symptoms Patient data External records reviewed:: None Clinical information provided by:: patient Social determinants that could affect healthcare access:: none Patient has the following chronic illnesses:: None How is presenting disease/condition affected by chronic disease/condition?: no chronic disease Evaluation data The following diagnostics were reviewed and interpreted by me:: lab results, radiology exam(s) and EKG tracing(s) Lab and/or radiology exams considered but not ordered:: None Interpretation Summary: See results MDM Medications / Prescriptions Medications or Prescriptions considered but not ordered:: None none Medication administrations:: None Consultations Consultation(s) initiated? (list below): No Diagnosis Shortness of Breath Differential Diagnosis: other (Shortness of breath, ) Most likely diagnosis given after review of the tests above:: Dizziness, anemia, third trimester Admission Indicated Admission indicated?: not indicated Explain why admission is indicated or not indicated:: Stable Admission Request Was there a request for admission?: No Disposition Plan Disposition Plan: Discharge Discharge Attestation Discharge Attestation: The patient was given an opportunity to ask questions and understood the discharge instructions. Discharge instructions specifically effects, indications for sooner follow up or return to the emergency department, and the expected course of current diagnosis. Patient condition: Stable Discharge Plan Plan Patient Disposition: HOME (Self Care) Discharge Disposition comment: Stable Prescriptions/Referrals Prescriptions/Med Rec: No Action Vitamin 27 mg iron- 800 mcg Tablet 1 tab PO DAILY Referrals: No Primary/Family,Physician [Primary Care Provider] - In 1 week Problem List Clinical Impression: Shortness of breath, and not yet delivered in third trimester Patient/Caregiver Discharge Instructions Discharge Activity: activity as tolerated Education Materials: Anemia During Additional Instructions: Thank you for the opportunity for serving you today. You are stable for discharged . You are advised to: Follow-up with your PCP in 1 to 2 days Return to ED for worsening of symptoms Increase intake of red meat, and green leafy vegetables Print Language: Polish Stand Alone Forms: Kayla Award Info., Patient Portal Info Letter PA/CELESTINO Supervising Physician YG/CELESTINO Supervising Physician: MD Kurt
== END 2025-09-04 20:54 | disposition home or self-care (01) ==
PROVIDERS: Physician Assistant; Emergency Provider Emergency Medicine
DX: O99.013 Anemia complicating pregnancy, third trimester (principal); Z3A.30 30 weeks gestation of pregnancy
CPT/HCPCS: 36415; 59025; 80053; 80307; 81001; 83880; 84484; 85025; 93005; 99281